=== PATIENT | male | born 1950 | race Caucasian/White ===

== ENCOUNTER 2024-08-19 02:59 | Emergency (ER) | payer OTHER, SELFPAY ==
[2024-08-19 03:05] VITALS: BP 170/89; PULSE 62; TEMP 36.4; O2SAT 96; BMI 30.7
--- NOTE | 2024-08-19 03:30 | XR_ITS ---
[facility] [place] [id number] Patient Name: LYDIA REIS MRN: [id number] date: 1950 Sex: M Assigned Patient Location: ER Current Patient Location: ED.MAIN Accession/Order Number: [id number] Exam Date: 08/19/2024 04:00 Report Date: 08/19/2024 05:45 At the request of: MELYSSA MARKER Procedure: XR chest 2V EXAM: XR chest 2V HISTORY: Cough for one week. COMPARISON: None. TECHNIQUE: PA and lateral views of the chest performed. FINDINGS: The trachea is midline. The heart size is normal. There is a mildly tortuous course of the descending thoracic aorta. The hilar shadows are unremarkable. There is no consolidation, pleural effusion or pulmonary vascular congestion. The bony structures appear osteopenic. There is resection of the distal right clavicle. There are paravertebral ossifications along the spine. XR/XR chest 2V IMPRESSION: There is no acute cardiopulmonary process. Electronically authenticated by: JOSE GOMEZ Date: 08/19/2024 05:45
--- NOTE | 2024-08-19 03:30 | ED_ITS ---
HPI - URI/Sore Throat General Chief Complaint: Upper Respiratory Infection Stated Complaint: COUGH Time Seen by Provider: 08/19/24 03:22 Source: patient and family Limitations: no limitations History of Present Illness HPI Narrative: This 73-year-old male, non-smoker, presents for evaluation of a cough for the past 4 to 5 days. The patient has been exposed to several people that have had viral illnesses in the recent past. He also works at [employer] He states there are a lot of people that he works with who have also been sick with coughs and colds. He has had a bronchospastic cough for the past 4 to 5 days and cannot sleep. Initially the cough was productive of anthony phlegm but is now clear or dry. He does not have any chest pain or specific shortness of breath. He has had pneumonia in the past but states he felt sick at that time and does not feel sick now. He has no abdominal pain or back pain. His has been giving him Sudafed for the cough without significant improvement and likely is related to the fact that he has not been able to sleep. Related Data Home Medications ?Medication ?Instructions ?Recorded ?Confirmed No Known Home Medications 08/19/24 08/19/24 Allergies Allergy/AdvReac Type Severity Reaction Status Date / Time No Known Drug Allergies Allergy Verified 08/19/24 03:07 Review of Systems ROS Status of ROS 10 or more systems reviewed and unremark able except as noted in history and below Exam Narrative Exam Narrative: Vital signs and Nursing Notes reviewed: Patient is afebrile with a normal pulse, blood pressure is elevated at 170/89, he is not hypoxic with pulse ox of 96% on room air General: Awake, alert, oriented, well-appearing adult male looking younger than his stated age, intermittent episodes of bronchospastic coughing HEENT: Normocephalic atraumatic, mucous membranes are moist and pink, eyes are clear, normal conjunctiva, vision is grossly intact, posterior pharynx is normal in appearance. Neck: Supple, no meningeal signs, no anterior or posterior cervical lymphadenopathy Chest: Faint expiratory wheezing and bronchospastic cough noted, the lungs are otherwise clear of rhonchi or rales, there is no accessory muscle use CVS: Regular rate and rhythm S1-S2, no murmurs rubs or gallops, pulses are brisk and equal bilaterally ABD: Soft, nondistended, nontender, no rebound guarding or rigidity, bowel sounds are normal, no pulsatile masses appreciated Extremities: Moving all extremities, no lower extremity tenderness or swelling noted, negative Homans' sign, pulses are brisk and equal bilaterally Skin: Normal in appearance without rash,pallor, petechiae or purpura Neuro: No focal deficits Constitutional Vital Signs, click to edit/add: Last Vital Signs Temp 97.6 F 08/19/24 03:05 Pulse 66 08/19/24 05:56 Resp 18 08/19/24 03:55 BP 146/79 H 08/19/24 05:56 Pulse Ox 95 08/19/24 05:56 O2 Del Method Room Air 08/19/24 04:01 Course Vital Signs Vital signs: Vital Signs Temperature 97.6 F 08/19/24 03:05 Pulse Rate 62 08/19/24 03:05 Respiratory Rate 18 08/19/24 03:05 Blood Pressure 170/89 H 08/19/24 03:05 Pulse Oximetry 96 08/19/24 03:05 Oxygen Delivery Method Room Air 08/19/24 03:05 Temperature 97.6 F 08/19/24 03:05 Pulse Rate 66 08/19/24 05:56 Respiratory Rate 18 08/19/24 03:55 Blood Pressure 146/79 H 08/19/24 05:56 Pulse Oximetry 95 08/19/24 05:56 Oxygen Delivery Method Room Air 08/19/24 04:01 MDM - URI/Sore Throat MDM Narrative Medical decision making narrative: This 73-year-old male, non-smoker, presents for evaluation of a cough for the past 4 to 5 days. He has been exposed to several people at work and family members who have recently had viral illnesses. He does not smoke. He has not had a fever. He states he does not feel sick just has a cough. He does have a bronchospastic cough with expiratory wheezing. He was given a respiratory treatment, cough medication with codeine, IV Solu-Medrol, IV fluids and routine labs are ordered. He has a normal white count and hemoglobin. Electrolytes are normal. Lactic acid is normal. Troponin and BNP are both normal. He will be discharged home with prescription for cough medication with codeine to help suppress his cough as well as albuterol MDI. He will also be given a note for work so that he can rest. Medical Records Medical records narrative: The [address] [address] XRay Report Signed Patient: LYDIA REIS MR#: [id number] : 1950 Acct:[id number] Age/Sex: 73 / M ADM Date: 08/19/24 Loc: ER Attending Dr: Ordering Physician: Chela Jauregui Date of Service: 08/19/24 Procedure(s): XR chest 2V Accession Number(s): [id number] cc: Miles Rajan D.O.; Chela Marker~ The [address] [address] Patient Name: LYDIA REIS MRN: [id number] date: 1950 Sex: M Assigned Patient Location: ER Current Patient Location: ED.MAIN Accession/Order Number: [id number] Exam Date: 08/19/2024 04:00 Report Date: 08/19/2024 05:45 At the request of: CHELA MARKER Procedure: XR chest 2V EXAM: XR chest 2V HISTORY: Cough for one week. COMPARISON: None. TECHNIQUE: PA and lateral views of the chest performed. FINDINGS: The trachea is midline. The heart size is normal. There is a mildly tortuous course of the descending thoracic aorta. The hilar shadows are unremarkable. There is no consolidation, pleural effusion or pulmonary vascular congestion. The bony structures appear osteopenic. There is resection of the distal right clavicle. There are paravertebral ossifications along the spine. XR/XR chest 2V IMPRESSION: There is no acute cardiopulmonary process. Electronically authenticated by: JOSE GOMEZ Date: 08/19/2024 05:45 Lab Data Attestation: I reviewed the patient's lab results. Labs: Lab Results 08/19/24 Range/Units 03:45 WBC 10.4 (4.0-11.0) 10^3/uL RBC 3.90 L (4.70-6.10) 10^6/uL Hgb 12.0 L (14.0-18.0) g/dL Hct 35.8 L (42.0-54.0) % MCV 91.8 (80.0-94.0) fL MCH 30.8 (25.9-34.0) pg MCHC 33.5 (29.9-35.2) g/dL RDW 13.2 (11.0-15.0) % Plt Count 403 (150-450) 10^3/uL MPV 8.5 L (9.5-13.5) fL Neut % (Auto) 56.5 (43.0-75.0) % Lymph % (Auto) 28.7 (20.5-60.0) % [place] % (Auto) 10.0 (1.7-12.0) % Eos % (Auto) 3.1 (0.9-7.0) % Baso % (Auto) 0.4 (0.2-2.0) % Neut # (Auto) 5.9 (1.4-6.5) 10^3/uL Lymph # (Auto) 3.0 (1.2-3.8) 10^3/uL [place] # (Auto) 1.0 H (0.3-0.8) 10^3/uL Eos # (Auto) 0.3 (0.0-0.7) 10^3/uL Baso # (Auto) 0.0 (0.0-0.1) 10^3/uL Abs Immat Gran (auto) 0.14 H (0.00-0.03) 10^3/uL Imm/Tot Granulo (auto) 1.3 H (0.0-0.5) % Sodium 137 (136-145) mmol/L Potassium 3.5 (3.5-5.1) mmol/L Chloride 100 (98-107) mmol/L Carbon Dioxide 31.3 (21.0-32.0) mmol/L Anion Gap 9.2 BUN 16.0 (7.0-18.0) mg/dL Creatinine 1.10 (0.70-1.30) mg/dL Est GFR ( Amer) >60 (>=60) Est GFR (Non-Af Amer) >60 (>=60) BUN/Creatinine Ratio 14.5 Glucose 104 (74-106) mg/dL Lactate 0.9 (0.4-2.0) mmol/L Calcium 9.3 (8.5-10.1) mg/dL Total Bilirubin 0.3 (0.2-1.0) mg/dL AST 49 H (15-37) U/L ALT 60 (16-63) U/L Alkaline Phosphatase 80 (46-116) U/L Troponin I High Sens 10.0 (4.0-76.1) pg/mL NT-Pro-B Natriuret Pep 308.0 (<=900.0) pg/mL Total Protein 7.7 (6.4-8.2) g/dL Albumin 3.1 L (3.4-5.0) g/dL Globulin 4.6 g/dL Albumin/Globulin Ratio 0.7 Discharge Plan Discharge Chief Complaint: Upper Respiratory Infection Clinical Impression: Viral upper respiratory tract infection with cough, Bronchospasm Patient Disposition: Home, Self-Care Time of Disposition Decision: 04:49 Condition: Good Prescriptions / Home Meds: No Action No Known Home Medications Print Language: Ukrainian Instructions: Upper Respiratory Infection (ED), Bronchospasm (ED), Wheezing (ED) Referrals: Miles Rajan DO [Primary Care Provider] - 1 week
[2024-08-19] MEDS: METHYLPREDNISOLONE SOD SUCC PF 125 MG/2 ML VIAL IVP (03:50)
[2024-08-19] MEDS: CODEINE 10 MG/GUAIFENESIN 100 MG 5 ML CUP 10 ML PO (03:50)
[2024-08-19] MEDS: IPRATROPIUM/ALBUTEROL SULFATE 3 ML AMPUL.NEB IH (03:53)
[2024-08-19 03:55] VITALS: PULSE 70; O2SAT 93
[2024-08-19 04:00] LABS: Basophils Percent Auto 0.4 % (0.2-2.0); Eosinophils Absolute Auto 0.3 10^3/uL (0.0-0.7); Eosinophils Percent Auto 3.1 % (0.9-7.0); Hematocrit 35.8 % (42.0-54.0); Immature Granulocytes Abs Auto 0.14 10^3/uL (0.00-0.03); Immature Granulocytes Pct Auto 1.3 % (0.0-0.5); Lymphocytes Percent Auto 28.7 % (20.5-60.0); Mean Corpuscular HGB Conc 33.5 g/dL (29.9-35.2); Mean Corpuscular Hemoglobin 30.8 pg (25.9-34.0); Mean Corpuscular Volume 91.8 fL (80.0-94.0); Mean Platelet Volume 8.5 fL (9.5-13.5); Neutrophils Absolute Auto 5.9 10^3/uL (1.4-6.5); Neutrophils Percent Auto 56.5 % (43.0-75.0); Platelet Count 403 10^3/uL (150-450); Red Cell Distribution Width 13.2 % (11.0-15.0); White Blood Count 10.4 10^3/uL (4.0-11.0)
[2024-08-19 04:01] VITALS: O2SAT 96
[2024-08-19 04:17] LABS: Alanine Aminotransferase 60 U/L (16-63); Albumin Globulin Ratio 0.7; Albumin Level 3.1 g/dL (3.4-5.0); Alkaline Phosphatase 80 U/L (46-116); Anion Gap 9.2; Aspartate Amino Transferase 49 U/L (15-37); BUN Creatinine Ratio 14.5; Bilirubin Total 0.3 mg/dL (0.2-1.0); Calcium 9.3 mg/dL (8.5-10.1); Carbon Dioxide 31.3 mmol/L (21.0-32.0); Chloride 100 mmol/L (98-107); Estimated GFR (African America >60 (>=60); Estimated GFR (Non-African Ame >60 (>=60); Globulin 4.6 g/dL; Glucose 104 mg/dL (74-106); Potassium 3.5 mmol/L (3.5-5.1); Sodium 137 mmol/L (136-145); Total Protein 7.7 g/dL (6.4-8.2)
[2024-08-19 04:19] LABS: Lactate/Lactic Acid 0.9 mmol/L (0.4-2.0)
[2024-08-19] MEDS: 0.9 % SODIUM CHLORIDE 500 ML IV (05:00)
[2024-08-19 05:56] VITALS: BP 146/79; PULSE 66; O2SAT 95
== END 2024-08-19 05:58 | disposition home or self-care (01) ==
PROVIDERS: Emergency Provider Emergency Medicine; PCP Internal Medicine
DX: J06.9 Acute upper respiratory infection, unspecified (principal); R05.9 Cough, unspecified; J98.01 Acute bronchospasm
CPT/HCPCS: 36415; 71046; 80053; 83605; 83880; 84484; 85025; 94640; 96374; 99284; J2919

== ENCOUNTER 2024-09-08 11:39 | Outpatient (OUT) | payer OTHER, SELFPAY ==
[2024-09-08 11:57] LABS: Basophils Absolute Auto 0.1 10^3/uL (0.0-0.1); Basophils Percent Auto 0.8 % (0.2-2.0); Eosinophils Absolute Auto 0.3 10^3/uL (0.0-0.7); Eosinophils Percent Auto 3.5 % (0.9-7.0); Hematocrit 39.3 % (42.0-54.0); Hemoglobin 12.5 g/dL (14.0-18.0); Immature Granulocytes Abs Auto 0.01 10^3/uL (0.00-0.03); Immature Granulocytes Pct Auto 0.1 % (0.0-0.5); Lymphocytes Absolute Auto 2.8 10^3/uL (1.2-3.8); Lymphocytes Percent Auto 36.8 % (20.5-60.0); Mean Corpuscular HGB Conc 31.8 g/dL (29.9-35.2); Mean Corpuscular Hemoglobin 29.4 pg (25.9-34.0); Mean Corpuscular Volume 92.5 fL (80.0-94.0); Mean Platelet Volume 7.9 fL (9.5-13.5); Monocytes Absolute Auto 0.5 10^3/uL (0.3-0.8); Monocytes Percent Auto 7.2 % (1.7-12.0); Neutrophils Absolute Auto 3.9 10^3/uL (1.4-6.5); Neutrophils Percent Auto 51.6 % (43.0-75.0); Platelet Count 461 10^3/uL (150-450); Red Blood Count 4.25 10^6/uL (4.70-6.10); Red Cell Distribution Width 13.4 % (11.0-15.0); White Blood Count 7.5 10^3/uL (4.0-11.0)
[2024-09-08 12:48] LABS: Percent Iron Saturation 17.2 %
[2024-09-08 17:15] LABS: Prostate Specific Antigen Scrn 4.07 ng/mL (<=4.00)
[2024-09-09 04:08] LABS: Vitamin B12 400 pg/mL (232-1245)
== END 2024-09-08 11:40 | disposition home or self-care (01) ==
LOC: LAB 11:41
PROVIDERS: PCP Internal Medicine; Visit Provider Internal Medicine
DX: D64.9 Anemia, unspecified (principal); Z12.5 Encounter for screening for malignant neoplasm of prostate
CPT/HCPCS: 36415; 82607; 82728; 82746; 83540; 83550; 85025; G0103

== ENCOUNTER 2025-03-02 09:32 | Emergency (ER) | payer OTHER, SELFPAY ==
[2025-03-02 09:39] VITALS: BP 178/93; PULSE 76; TEMP 36.9; O2SAT 96; BMI 29.8
--- NOTE | 2025-03-02 09:51 | ED.GENADUL1 ---
HPI HPI - General Adult General Chief complaint: Back Pain/Injury Stated complaint: BCK PAIN Time Seen by Provider: 03/02/25 09:43 Source: patient Mode of arrival: walk-in History of Present Illness HPI narrative: 74-year-old male presents for left lower back pain. His believes he has sciatica. He has had pain and numbness going down the anterior surface of the left leg. 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 This began a few days ago but was not precipitated by any specific injury. He has never had issues with sciatica before. The pain is moderate and only on the left side. No dysuria or hematuria Related Data Previous Rx's ?Medication ?Instructions ?Recorded hydrocodone 5 mg-acetaminophen 325 1 tab PO Q6H PRN pain 5 days #20 03/02/25 mg tablet tabs prednisone 10 mg tablet See Rx Instructions .Route 03/02/25 .COMPLEX #30 tabs Allergies Allergy/AdvReac Type Severity Reaction Status Date / Time No Known Drug Allergies Allergy Verified 03/02/25 09:39 Opioid HPI Opioid Management Most Recent Opioid Data: No Data to Display Review of Systems ROS Narrative A ten point review of systems is negative except as noted above. PFSH PFSH Social History Little interest or pleasure in doing things: not at all Feeling down, depressed, or hopeless: not at all Exam Narrative Exam Narrative: Nurses note and vital signs reviewed and patient is not hypoxic. General: The patient appears well and in no apparent distress. Patient is resting comfortably on cart. Skin: Warm, dry, no pallor noted. There is no rash noted. Head: Normocephalic, atraumatic Eye: Normal conjunctiva, no drainage Ears, Nose, Mouth, and Throat: oral mucosa is moist. Nares patent. Cardiovascular: Regular Rate and Rhythm Respiratory: Patient is in no distress, no accessory muscle use, lungs are clear to auscultation, no wheezing, rales or rhonchi Back: No bruise or rash or palpable tenderness GI: Soft and nontender Musculoskeletal: The leg is not swollen. No calf tenderness Neurological: A&O, normal speech Psychiatric: Cooperative Constitutional Vital Signs, click to edit/add: Last Vital Signs Temp 98.4 F 03/02/25 09:39 Pulse 76 03/02/25 09:39 Resp 20 03/02/25 09:39 BP 178/93 H 03/02/25 09:39 Pulse Ox 96 03/02/25 09:39 O2 Del Method Room Air 03/02/25 09:39 Course Vital Signs Vital signs: Vital Signs Temperature 98.4 F 03/02/25 09:39 Pulse Rate 76 03/02/25 09:39 Respiratory Rate 20 03/02/25 09:39 Blood Pressure 178/93 H 03/02/25 09:39 Pulse Oximetry 96 03/02/25 09:39 Oxygen Delivery Method Room Air 03/02/25 09:39 Temperature 98.4 F 03/02/25 09:39 Pulse Rate 76 03/02/25 09:39 Respiratory Rate 20 03/02/25 09:39 Blood Pressure 178/93 H 03/02/25 09:39 Pulse Oximetry 96 03/02/25 09:39 Oxygen Delivery Method Room Air 03/02/25 09:39 Medical Decision Making MDM Narrative Medical decision making narrative: Lumbar x-rays show no acute findings. My clinical impression is that he has sciatica. He will be prescribed prednisone and [place] and follow-up with his doctor. Treatment diagnosis and follow-up were discussed with the patient and his . Differential Diagnosis Differential Diagnosis: Sciatica, disc herniation, compression fracture Imaging Data Lumbar x-ray: Radiologist's impression: No acute process. Severe disc space degenerative changes Discharge Plan Discharge Chief Complaint: Back Pain/Injury Clinical Impression: Sciatica Patient Disposition: Home, Self-Care Time of Disposition Decision: 11:37 Condition: Good Mode of Transportation: Private Vehicle Prescriptions / Home Meds: New hydrocodone-acetaminophen 5-325 mg tablet 1 tab PO Q6H PRN (Reason: pain) 5 Days Qty: 20 0RF prednisone 10 mg tablet See Rx Instructions .ROUTE .COMPLEX Qty: 30 0RF Rx Instructions: 4 by mouth daily for three days then 3 by mouth daily for three days then 2 by mouth daily for three days then 1 by mouth daily for three days Print Language: Mohawk Instructions: Sciatica (ED) Referrals: Miles Rajan DO [Primary Care Provider] - 1 week
[2025-03-02] MEDS: KETOROLAC TROMETHAMINE 60 MG/2 ML VIAL IM (10:04)
--- OUTSIDE RECORDS SUMMARY | 2025-03-02 10:59 | XMS_ITS | CCD ---
Author Organization [facility] Care Team Providers Care Bracer Name Role Phone Miles Rajan Unavailable JEREMIE BYRNE Attending Unavailable JEREMIE BYRNE Referring Unavailable Miles Rajan MD Primary Care Provider Medications Current Medications Medication Drug Class(es) Dates Sig (Normalized) Sig (Original) acetaminophen 325 mg oral tablet (3 sources) acetaminophen (Tylenol) 325 MG tablet every 4 (four) hours. Active doxycycline hyclate 100 mg oral capsule (2 sources) Tetracycline-class Drug Start: 05-07-2023 take 1 capsule by mouth twice daily Doxycycline Hyclate 100 MG 1 capsule Orally twice daily for 7 days May, Active ibuprofen 200 mg oral tablet (3 sources) Nonsteroidal Anti-inflammatory Drug ibuprofen (Advil) 200 MG tablet every 8 (eight) hours. Active Problems Problem Classification Problem Date Documented Date Episodic/Chronic Acute bronchitis (1 source) Acute bronchitis due to other specified organisms Episodic Coagulation and hemorrhagic disorders (1 source) Easy bruising; Translations: [Spontaneous ecchymoses] 04-20-2024 Episodic Deficiency and other anemia (1 source) Anemia; Translations: [Anemia, unspecified] 07-31-2024 Episodic Deficiency and other anemia (1 source) Anemia, unspecified; Translations: [Anemia, unspecified] 07-31-2024 Episodic Hyperplasia of prostate (4 sources) Benign prostatic hypertrophy without outflow obstruction; Translations: [Benign prostatic hyperplasia without lower urinary tract symptoms] 07-30-2024 Chronic Osteoarthritis (5 sources) Osteoarthritis of right hip joint; Translations: [Unilateral primary osteoarthritis, right hip] Onset: 10-07-2023 10-07-2023 Chronic Other circulatory disease (3 sources) Elevated blood-pressure reading without diagnosis of hypertension; Translations: [Elevated blood-pressure reading, without diagnosis of hypertension] 04-20-2024 Episodic Other circulatory disease (1 source) Elevated blood-pressure reading, without diagnosis of hypertension; Translations: [Elevated blood pressure reading without diagnosis of hypertension] 07-31-2024 Episodic Other connective tissue disease (5 sources) History of total hip arthroplasty; Translations: [Presence of right artificial hip joint] Onset: 10-07-2023 10-07-2023 Chronic Other nutritional; endocrine; and metabolic disorders (1 source) Overweight; Translations: [Overweight] 04-20-2024 Episodic Other screening for suspected conditions (not mental disorders or infectious disease) (3 sources) Patient encounter status; Translations: [Encounter for screening for malignant neoplasm of prostate] 07-30-2024 Episodic Results Test Name Value Interpretation Reference Range Facil ity XR Hip - right 3 [facility] Result: October 13, 2024 x-rays AP and lateral of the right hip demonstrate a right total hip replacement in good position alignment without signs of loosening fracture or failure. Impression: Stable appearance of right total hip replacement Donovan Byrne D.O. [facility] Radiology Study observation (narrative) [facility] Vital Signs Date Time Vital Sign Value Performing Clinician Faci lity 07-31-2024 09:03-0400 Body height 182.88 cm [facility] 07-31-2024 09:03-0400 Body mass index (BMI) [Ratio] 29.9 kg/m2 [facility] 07-31-2024 09:03-0400 Body weight 100.35 kg [facility] 07-31-2024 09:03-0400 Diastolic blood pressure 90 mm[Hg] [facility] 07-31-2024 09:03-0400 Heart rate 69 /min [facility] 07-31-2024 09:03-0400 Respiratory rate 12 /min [facility] 07-31-2024 09:03-0400 Systolic blood pressure 156 mm[Hg] [facility] 04-20-2024 14:22-0400 Body height 182.88 cm [facility] 04-20-2024 14:22-0400 Body mass index (BMI) [Ratio] 29.7 kg/m2 [facility] 04-20-2024 14:22-0400 Body weight 99.33 kg [facility] 04-20-2024 14:22-0400 Diastolic blood pressure 85 mm[Hg] [facility] 04-20-2024 14:22-0400 Heart rate 81 /min [facility] 04-20-2024 14:22-0400 Respiratory rate 12 /min [facility] 04-20-2024 14:22-0400 Systolic blood pressure 142 mm[Hg] [facility] Encounters Encounter Date Encounter Type Care Provider Facility Start: 10-13-2024 End: 10-13-2024 Bamboo flowsheet Jeremie Byrne DO Work Phone: [facility] Start: 10-13-2024 End: 10-13-2024 Bamboo flowsheet Jeremie Byrne DO Work Phone: [facility] Start: 10-13-2024 End: 10-13-2024 Office outpatient visit 10 minutes Jeremie Byrne DO Work Phone: [facility] Comment on above: Primary osteoarthrit is of right hip; Status post total replacement of right hip Start: 10-13-2024 End: 10-13-2024 ambulatory JEREMIE BYRNE Not Available Start: 07-31-2024 End: 07-31-2024 ambulatory [facility] Work Phone: Start: 07-31-2024 End: 07-31-2024 Patient encounter procedure [facility] Physician [facility] Work Phone: Start: 04-20-2024 End: 04-20-2024 ambulatory [facility] Work Phone: Start: 04-20-2024 End: 04-20-2024 Patient encounter procedure [facility] Physician [facility] Work Phone: Start: 05-07-2023 End: 05-07-2023 ambulatory Miles Rajan Other [facility] Other Start: 05-07-2023 Office outpatient vi sit 15 minutes Miles Rajan [facility] Start: 05-07-2023 Telephone encounter Miles Rajan [facility] Procedures Date Procedure Procedure Detail Performing Clinician Start: 10-13-2024 Radex hip unilateral with pelvis 2-3 views Jeremie Byrne DO Work Phone: Plan of Treatment Date Care Activity Detail Author Dayanna Kurtz [facility] Payers Date Payer Category Payer Medicare (Managed Care) [facility] MEDICARE [id number] 2022 Medicare [id number] 1950 Unknown [id number] 1950 Unknown [id number] Medicare Medicare [id number] Unknown [employer] [id number] Social History Date Type Detail Facility Sex Assigned At [facility] Other Start: 1950 Sex Assigned At Male [facility] Tobacco smoking status MOIS Tobacco smoking consumption unknown [facility] Start: 1950 Sex assigned at Not on file [facility] History of Present illness Narrative 10-13-2024 Jeremie Byrne DO - 10/13/2024 10:45 AM EST Note Date & Type Note Facility 10-13-2024 History of Presen t illness Narrative Images from the original note were not included. HISTORY OF PRESENT ILLNESS: Lydia Reis is an 73 y.o. @ male. Follow up RT KINGS RT hip: 5 years s/p RT KINGS dos (08/05/19). Doing well, not taking anything for pain. He notes sometimes uncomfortable to lay on RT side. Incision well healed. Ambulating well unassisted. Pt pleased with outcome. He is working at [employer]. MEDICATION: Current Outpatient Medications on File Prior to Visit Medication Sig Dispense Refill acetaminophen (Tylenol) 325 MG tablet every 4 (four) hours. ibuprofen (Advil) 200 MG tablet every 8 (eight) hours. No current facility-administered medications on file prior to visit. MEDICAL HISTORY: Past Medical History: Diagnosis Date Arthritis ALLERGIES: No Known Allergies VITALS: There were no vitals taken for this visit. PHYSICAL EXAM: Ortho Exam RIGHT HIP ROM 20 IR and 30 ER Painless ROM Strength 5/5 Gait intact IMAGING: XR hip right 2 or 3 views Imaging Result: October 13, 2024 x-rays AP and lateral of the right hip demonstrate a right total hip replacement in good position alignment without signs of loosening fracture or failure. Impression: Stable appearance of right total hip replacement Donovan Byrne D.O. ASSESSMENT: ICD-10-CM 1. Primary osteoarthritis of right hip M16.11 XR hip right 2 or 3 views 2. Status post total replacement of right hip Z96.641 PLAN: Follow up as needed, any issues/concerns follow up sooner. Dr. Byrne obtained history and examined the patient, I am acting as scribe for Dr. Byrne/jaylen I did advise the patient that I am leaving my current practice to practice in another state but my colleagues are willing to see him if he has any problems or concerns or if he desires a referral to another review specialist we would be happy to make referral, he states he would like to continue his care here if he needed. William Byrne D.O. documented in this encounter [facility] Evaluation note 05-07-2023 Note Date & Type Note Facility 05-07-2023 Evaluation note Encounter Date Diagnosis Assessment Notes May, Acute bronchitis due to other specified organisms (ICD-10 - J20.8) Instructed to use Robitussin or Mucinex for cough, saline or Flonase NS for congestion, Tylenol for pain and fever. [facility] Other Evaluation note Note Date & Type Note Facility Evaluation note No Information [facility] Other Evaluation note Note Date & Type Note Facility Evaluation note No assessment information availa ble [facility] Work Phone: Evaluation note Note Date & Type Note Facility Evaluation note Diagnosis Onset Date Anemia acute Benign prostatic hyperplasia with lower urinary tract symptoms acute Elevated BP without diagnosi s of hypertension acute Screening PSA (prostate specific antigen) acute Medicare annual wellness visit, subsequent noneactive [facility] Work Phone: Evaluation note Note Date & Type Note Facility Evaluation note Diagnosis Primary osteoarthritis of right hip Status post total replacement of right hip documented in this encounter [facility] History general Narrative - Reported Note Date & Type Note Facility History general Narrative - Reported Type Medical History BPH without obstruct ion/lower urinary tract symptoms Medical History Elevated blood press ure (not hypertension) Surgical History RIGHT SHOULDER ARTHROSCOPY Surgical History RIGHT TOTAL HIP ARTHROPLASTY 20 19 Surgical History ARTHROSCOPY, KNEE LEFT Hospitalization History SEE SURGICAL HX [facility] Other Chief Complaint and Reason for Visit Chief Complaint BRUSING EASILY Chief Complaint wellness Reason for Visit Anemia Benign prostatic hyperplasia with lower urinary tract symptoms Elevated BP without diagnosis of hypertension Screening PSA (prostate specific antigen) Medicare annual wellness visit, subsequent Advance Directives Advance Directive Response Recorded Date/ Time Advance Directives No April 20 2:05pm Summary Purpose Family History No Family History Records Found Additional Source Comments REASON FOR VISIT (unrecogniz ed section and content) Reason Comments Follow-up sinus infection? bad loose cough Care Teams (unrecognized sec tion and content) Team Status: Active Member Role Status Dates Miles Rajan DO Primary Care Provider Active Team Status: Inactive Member Role Status Dates Miles Rajan DO Primary Care Provide r, Attending Provider Active Start: April 20, 2024 End: April 20, 2024 Team Status: Inactive Member Role Status Dates Miles Rajan DO Primary Care Provide r, Attending Provider Active Start: July 31, 2024 End: July 31, 2024 Bracer Relationship Specialty Start Date End Date Miles Rajan MD [address] [place] [id number] PCP - General Internal Medicine 10/08/23 Bracer Relationship Specialty Start Date End Date Miles Rajan MD [address] [place] [id number] PCP - General Internal Medicine 10/08/23 Goals (unrecognized section and content) Goals may be documented in a n alternate section (unrecognized sect ion and content) No Status Records Found INFORMATION SOURCE (unrecogn ized section and content) DATE CREATED AUTHOR 10/19/2024 [facility] EPIC FOR RECORDS PERTAINING TO PATIENTS WHO ARE OR HAVE BEEN ENROLLED IN A CHEMICAL DEPENDENCY/SUBSTANCEABUSE PROGRAM, SOME INFORMATION MAY BE OMITTED. This clinical summary was aggregated from multiple sources. Caution should be exercised in using it in the provision of clinical care. This summary normalizes information from multiple sources, and as a consequence, information in this document may materially change the coding, format and clinical context of patient data. In addition, data may be omitted in some cases. CLINICAL DECISIONS SHOULD BE BASED ON THE PRIMARY CLINICAL RECORDS. [facility] provides no warranty or guarantee of the accuracy or completeness of information in this document.
== END 2025-03-02 12:03 | disposition home or self-care (01) ==
PROVIDERS: Emergency Provider Emergency Medicine; PCP Internal Medicine
DX: M54.32 Sciatica, left side (principal)
CPT/HCPCS: 72100; 96372; 99284; J1885

== ENCOUNTER 2025-09-09 09:43 | Outpatient (OUT) | payer OTHER, SELFPAY ==
--- OUTSIDE RECORDS SUMMARY | 2025-09-09 09:53 | XMS_ITS | CCD ---
Author Organization [facility] Care Team Providers Care Straightening Roll Operator Name Role Phone Miles Rajan Unavailable JEREMIE BYRNE Attending Unavailable JEREMIE BYRNE Referring Unavailable Miles Rajan MD Primary Care Provider Miles Rajan DO Primary Care Provider Miles Rajan DO Attending Provider Medications Current Medications Medication Drug Class(es) [...] MG tablet every 8 (eight) hours. Active [place] (No Known Home Meds) (1 source) Start: 08-23-2025 [place] (No Known Home Meds) Active August 23, 2025 12:00am Completed/Discontinued Medications Medication Drug Class(es) Dates Sig (Normalized) Sig (Original) benzonatate 200 mg oral capsule (2 sources) Non-narcotic Antitussive Start: 08-25-2024 End: 08-23-2025 take 1 capsule by mouth three times daily Benzonatate 200 mg capsule Discontinued 200 MG PO Three times daily 30 09August 25, 2024 12:00am August 23, 2025 10:37am etodolac 500 mg oral tablet (2 sources) Nonsteroidal Anti-inflammatory Drug Start: 03-05-2025 End: 08-23-2025 take 1 tablet by mouth twice daily Etodolac 500 mg tablet Discontinued 500 MG PO Twice daily March 05, 2025 12:00am August 23, 2025 10:37am Problems Problem Classification Problem Date Documented Date Episodic/Chronic Acute bronchitis (1 source) Acute bronchitis due to other specified organisms Episodic Coagulation and hemorrhagic disorders (3 sources) Easy bruising; Translations: [Spontaneous ecchymoses] 04-20-2024 Episodic Deficiency and other anemia (4 sources) Anemia; Translations: [Anemia, unspecified] 07-31-2024 Episodic Comment on above: FA, B12 normal, Fe b orderline - ologuard negative 10/2024 Deficiency and other anemia (1 source) Anemia, unspecified; Translations: [Anemia, unspecified] 07-31-2024 Episodic Hyperplasia of prostate (6 sources) Benign prostatic hypertrophy without outflow obstruction; Translations: [Benign prostatic hyperplasia without lower urinary tract symptoms] 07-30-2024 Chronic Osteoarthritis (5 sources) Osteoarthritis of right hip joint; Translations: [Unilateral primary osteoarthritis, right hip] Onset: 10-07-2023 10-07-2023 Chronic Other circulatory disease (6 sources) Elevated blood-pressure reading without diagnosis of hypertension; Translations: [Elevated blood-pressure reading, without diagnosis of hypertension] 04-20-2024 Episodic Other circulatory disease (2 sources) Elevated blood-pressure reading, without diagnosis of hypertension; Translations: [Elevated blood pressure reading without diagnosis of hypertension] 07-31-2024 Episodic Other connective tissue disease (5 sources) History of total hip arthroplasty; Translations: [Presence of right artificial hip joint] Onset: 10-07-2023 10-07-2023 Chronic Other nutritional; endocrine; and metabolic disorders (2 sources) Obesity; Translations: [Obesity, unspecified] 03-05-2025 Chronic Other nutritional; endocrine; and metabolic disorders (3 sources) Overweight; Translations: [Overweight] 04-20-2024 Episodic Other screening for suspected conditions (not mental disorders or infectious disease) (8 sources) Patient encounter status; Translations: [Encounter for screening for malignant neoplasm of prostate] 07-30-2024 Episodic Comment on above: PSA: 4.07 - 09/2024, 3.12 - 10/2024 Spondylosis; intervertebral disc disorders; other back problems (4 sources) Lumbar spondylosis; Translations: [Spondylosis without myelopathy or radiculopathy, lumbar region] 03-04-2025 Chronic Spondylosis; intervertebral disc disorders; other back problems (3 sources) Low back pain; Translations: [Low back pain radiating to left lower extremity] 03-04-2025 Episodic Results Test Name Value Interpretation Reference Range Facil ity XR Hip - right 3 [facility] Result: October 13, 2024 x-rays AP and lateral of the right hip demonstrate a right total hip replacement in good position alignment without signs of loosening fracture or failure. Impression: Stable appearance of right total hip replacement Donovan Byrne D.O. [facility] Rad[facility] Study observation (narrative) [facility] Vital Signs Date Time Vital Sign Value Performing Clinician Russel benavides 08-23-2025 10:39-0400 Body height 182.88 cm Miles Ball DO Work Phone: [facility] 08-23-2025 10:39-0400 Body mass index (BMI) [Ratio] 28.8 kg/m2 Miles Ball DO Work Phone: [facility] 08-23-2025 10:39-0400 Body weight 96.33 kg Miles Ball DO Work Phone: [facility] 08-23-2025 10:39-0400 Diastolic blood pressure 95 mm[Hg] Miles Ball DO Work Phone: [facility] 08-23-2025 10:39-0400 Heart rate 71 /min Miles Ball DO Work Phone: [facility] 08-23-2025 10:39-0400 Respiratory rate 12 /min Miles Ball DO Work Phone: [facility] 08-23-2025 10:39-0400 Systolic blood pressure 211 mm[Hg] Miles Ball DO Work Phone: [facility] 03-05-2025 10:40-0400 Body height 182.88 cm [facility] 03-05-2025 10:40-0400 Body mass index (BMI) [Ratio] 30.7 kg/m2 [facility] 03-05-2025 10:40-0400 Body weight 102.56 kg [facility] 03-05-2025 10:40-0400 Diastolic blood pressure 81 mm[Hg] [facility] 03-05-2025 10:40-0400 Heart rate 61 /min [facility] 03-05-2025 10:40-0400 Respiratory rate 12 /min [facility] 03-05-2025 10:40-0400 Systolic blood pressure 165 mm[Hg] [facility] 07-31-2024 09:03-0400 Body height 182.88 cm [facility] 07-31-2024 09:03-0400 Body mass index (BMI) [Ratio] 29.9 kg/m2 [facility] 07-31-2024 09:03-0400 Body weight 100.35 kg [facility] 07-31-2024 09:03-0400 Diastolic blood pressure 90 mm[Hg] [facility] 07-31-2024 09:03-0400 Heart rate 69 /min [facility] 07-31-2024 09:03-0400 Respiratory rate 12 /min [facility] 07-31-2024 09:03-0400 Systolic blood pressure 156 mm[Hg] [facility] 04-20-2024 14:22-0400 Body height 182.88 cm [facility] 04-20-2024 14:22-0400 Body mass index (BMI) [Ratio] 29.7 kg/m2 [facility] 04-20-2024 14:22-0400 Body weight 99.33 kg [facility] 04-20-2024 14:22-0400 Diastolic blood pressure 85 mm[Hg] [facility] 04-20-2024 14:22-0400 Heart rate 81 /min [facility] 04-20-2024 14:22-0400 Respiratory rate 12 /min [facility] 04-20-2024 14:22-0400 Systolic blood pressure 142 mm[Hg] [facility] Encounters Encounter Date Encounter Type Care Provider Facility Start: 08-23-2025 End: 08-23-2025 ambulatory Miles Ball DO Work Phone: [facility] Work Phone: Start: 08-23-2025 End: 08-23-2025 Patient encounter procedure Miles Rajan DO -[facility] Work Phone: Start: 03-05-2025 End: 03-05-2025 ambulatory [facility] Work Phone: Start: 03-05-2025 End: 03-05-2025 Patient encounter procedure [facility] Work Phone: Start: 03-03-2025 Non-patient / Non-visit [facility] Work Phone: Start: 10-13-2024 End: 10-13-2024 Bamboo flowsheet Jeremie [...] Not Available Start: 07-31-2024 End: 07-31-2024 ambulatory [facility] Work Phone: Start: 07-31-2024 End: 07-31-2024 Patient encounter procedure [facility] Work Phone: Start: 04-20-2024 End: 04-20-2024 ambulatory [facility] Work Phone: Start: 04-20-2024 End: 04-20-2024 Patient encounter procedure [facility] Work Phone: Start: 05-07-2023 End: 05-07-2023 ambulatory Miles Rajan Other [employer] Other Start: 05-07-2023 Office outpatient vi sit 15 minutes Miles Rajan [facility] Start: 05-07-2023 Telephone encounter Miles Rajan [facility] Procedures Date Procedure Procedure Detail Performing Clinician Start: 10-13-2024 Radex hip unilateral with pelvis 2-3 views Jeremie Byrne DO Work Phone: Plan of Treatment Date Care Activity Detail Author Patient Education Low back pain in adults [facility] Work Phone: [facility] Immunizations Immunization Date Immunization Notes Care Provider Fa nathaniel 10-31-2021 COVID-19 mRNA-1273 (Moderna) Miles Rajan DO Work Phone: [facility] 03-24-2021 COVID-19 mRNA-1273 (Moderna) Miles Rajan DO Work Phone: [facility] 02-24-2021 COVID-19 mRNA-1273 (Moderna) Miles Rajan DO Work Phone: [facility] Payers Date Payer Category Payer Medicare (Managed Care) [facility] MEDICARE [id number] 2022 Medicare [id number] 1950 Unknown [id number] 1950 Unknown [id number] Medicare Medicare [id number] Unknown [employer] [id number] Social History Date Type Detail Facility Sex Assigned At [facility] Other Start: 1950 Sex Assigned At Male F [facility] Tobacco smoking status [facility] Tobacco smoking consumption unknown [facility] Start: 1950 Sex assigned at Not on file [facility] Start: 03-05-2025 Sex Male (finding) [facility] Start: 08-23-2025 Tobacco smoking status [facility] Never smoked tobacco (finding) [facility] History of Present illness Narrative 10-13-2024 Jeremie Byrne, DO - 10/13/2024 10:45 AM EST Note Date & Type Note Facility 10-13-2024 History of Presen t illness Narrative Images from the original note were not included. HISTORY OF PRESENT ILLNESS: Khadar James is an 73 y.o. @ male. 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 William Byrne D.O. documented in this encounter [facility] Healthcare Evaluation note 05-07-2023 Note Date & Type Note Facility 05-07-2023 Evaluation note Encounter Date Diagnosis Assessment Notes May, Acute bronchitis due to other specified organisms (ICD-10 - J20.8) Instructed to use Robitussin or Mucinex for cough, saline or Flonase NS for congestion, Tylenol for pain and fever. [employer] Other Evaluation note Note Date & Type Note Facility Evaluation note No Information [facility] [employer] Other Evaluation note Note Date & Type Note Facility Evaluation note No assessment information availa ble [facility] Work Phone: Evaluation note Note Date & Type Note Facility Evaluation note Diagnosis Onset Date Anemia acute Benign prostatic hyperplasia with lower urinary tract symptoms acute Elevated BP without diagnosi s of hypertension acute Screening PSA (prostate specific antigen) acute Medicare annual wellness visit, subsequent noneactive [facility] Work Phone: Evaluation note Note Date & Type Note Facility Evaluation note Diagnosis Primary osteoarthritis of right hip Status post total replacement of right hip documented in this encounter [facility] Healthcare Evaluation note Note Date & Type Note Facility Evaluation note Diagnosis Onset Date Resolution Elevated BP without diagnosis of hypertension acute March 05, 2025 10:09am Low back pain radiating to left lower extremity acute March, 2024 10:09am Lumbar spondylosis acute March 05, 2025 10:09am [facility] Work Phone: Evaluation note Note Date & Type Note Facility Evaluation note Diagnosis Onset Date Resolution Anemia acute August 10:20am Elevated BP without diagnosis of hypertension acute August 23, 2025 10:20am Lumbar spondylosis acute Septem 2024 10:20am Obesity acute August 10:20am Screening PSA (prostate specific antigen) acute August 10:20am Medicare annual wellness visit, subsequent noneactive August 23, 2025 10:20am [facility] Work Phone: History general Narrative - Reported Note Date & Type Note Facility History general Narrative - Reported Type Medical History BPH without obstruct ion/lower urinary tract symptoms Medical History Elevated blood press ure (not hypertension) Surgical History RIGHT SHOULDER ARTHROSCOPY Surgical History RIGHT TOTAL HIP ARTHROPLASTY 20 19 Surgical History ARTHROSCOPY, KNEE LEFT Hospitalization History SEE SURGICAL HX [employer] Other Reason for referral (narrative) Note Date & Type Note Facility Reason for referral (narrative) No reason for referral information available [facility] Work Phone: Chief Complaint and Reason for Visit Chief Complaint BRUSING EASILY Chief Complaint wellness Reason for Visit Anemia Benign prostatic hyperplasia with lower urinary tract symptoms Elevated BP without diagnosis of hypertension Screening PSA (prostate specific antigen) Medicare annual wellness visit, subsequent Chief Complaint Admit Date Amb Documentation March 03, 2025 11:2 2am ER follow up, sciatica pain March 05, 025 10:09am Reason for Visit Admit Date Elevated BP without diagnosis of hyperte nsion March 05, 2025 10:09am Low back pain radiating to left lower ex tremity March 05, 2025 10:09am Lumbar spondylosis March 05, 2025 10:0 9am Chief Complaint Admit Date Wellness August 23, 2025 10:20am Reason for Visit Admit Date Anemia August 23, 2025 10:20am Elevated BP without diagnosis of hyperte nsion August 23, 2025 10:20am Lumbar spondylosis August 23, 2025 10:20am Obesity August 23, 2025 10:20am Screening PSA (prostate specific antigen ) August 23, 2025 10:20am Medicare annual wellness visit, subseque nt August 23, 2025 10:20am Advance Directives Advance Directive Response Recorded Date/ Time Advance Directives No April 20 2:05pm Advance Directive Response Recorded Date/ Time Advance Directives No August 9:31am Summary Purpose Family History No Family History Records Found Additional Source Comments REASON FOR VISIT (unrecogniz ed section and content) Reason Comments Follow-up sinus infection? bad loose cough Care Teams (unrecognized sec tion and content) Team Status: Active Member Role Status Dates Miles Rajan DO Primary Care Provider Active Team Status: Inactive Member Role Status Dates Miles Rajan DO Primary Care Provider Active Start: August 23, 2025 End: August 23, 2025 Miles Rajan DO Attending Provider Active Sta rt: August 23, 2025 End: August 23, 2025 Team Status: Active Member Role Status Dates Miles Rajan DO Primary Care Provider Active Team Status: Active Member Role Status Dates Miles Rajan DO Primary Care Provider Active Start: March 03, 2025 Ely Robert CMA Attending Provider Active Start: March 03, 2025 Team Status: Inactive Member Role Status Dates Miles Rajan DO Primary Care Provide r, Attending Provider Active Start: March 05, 2025 End: March 05, 2025 Team Status: Inactive Member Role Status Dates Miles Rajan DO Primary Care Provide r, Attending Provider Active Start: April 20, 2024 End: April 20, 2024 Team Status: Inactive Member Role Status Dates Miles Rajan DO Primary Care Provide r, Attending Provider Active Start: July 31, 2024 End: July 31, 2024 Straightening Roll Operator Relationship Specialty Start Date End Date Miles Rajan MD [address] [place] [address] PCP - General Internal Medicine 10/08/23 Straightening Roll Operator Relationship Specialty Start Date End Date Miles Rajan MD [address] [place] [address] PCP - General Internal Medicine 10/08/23 Team Status: Inactive Member Role Status Dates Miles Rajan DO Primary Care Provider Active Start: August 23, 2025 End: August 23, 2025 Miles Rajan DO Attending Provider Active Sta rt: August 23, 2025 End: August 23, 2025 Goals (unrecognized section and content) Goals may be documented in a n alternate section (unrecognized sect ion and content) No Status Records Found INFORMATION SOURCE (unrecogn ized section and content) DATE CREATED AUTHOR 10/19/2024 [facility] RECORDS PERTAINING TO PATIENTS WHO ARE [...] BE BASED ON THE PRIMARY CLINICAL RECORDS. [facility] [employer] [facility]. provides no warranty or guarantee of the accuracy or completeness of information in this document.
[2025-09-10 11:21] LABS: Hematocrit 42.2 % (42.0-54.0); Hemoglobin 14.2 g/dL (14.0-18.0); Immature Granulocytes Abs Auto 0.02 10^3/uL (0.00-0.03); Immature Granulocytes Pct Auto 0.3 % (0.0-0.5); Lymphocytes Absolute Auto 2.1 10^3/uL (1.2-3.8); Mean Corpuscular HGB Conc 33.6 g/dL (29.9-35.2); Mean Corpuscular Hemoglobin 30.1 pg (25.9-34.0); Mean Corpuscular Volume 89.4 fL (80.0-94.0); Platelet Count 370 10^3/uL (150-450); Red Blood Count 4.72 10^6/uL (4.70-6.10); White Blood Count 7.9 10^3/uL (4.0-11.0)
[2025-09-10 13:26] LABS: Ferritin 122.0 ng/mL (26.0-388.0)
[2025-09-10 14:28] LABS: Alanine Aminotransferase 29 U/L (16-63); Albumin Globulin Ratio 0.9; Albumin Level 4.0 g/dL (3.4-5.0); Alkaline Phosphatase 70 U/L (46-116); Anion Gap 11.2; Aspartate Amino Transferase 32 U/L (15-37); Blood Urea Nitrogen 18.0 mg/dL (7.0-18.0); Calcium 9.4 mg/dL (8.5-10.1); Carbon Dioxide 30.8 mmol/L (21.0-32.0); Chloride 99 mmol/L (98-107); Cholesterol 248 mg/dL (<=200); Creatine Kinase 230 U/L (39-308); Estimated GFR (African America >60 (>=60 mL/min/1.73m^2); Estimated GFR (Non-African Ame 58 (>=60 mL/min/1.73m^2); Globulin 4.3 g/dL; Glucose 103 mg/dL (74-106); HDL Cholesterol 69 mg/dL (40-60); Magnesium 2.3 mg/dL (1.8-2.4); Potassium 4.0 mmol/L (3.5-5.1); Sodium 137 mmol/L (136-145); Thyroid Stimulating Hormone 1.363 uIU/mL (0.358-3.740); Total Protein 8.3 g/dL (6.4-8.2); Triglycerides 92 mg/dL (<=150); VLDL CHOLESTEROL 18.4 mg/dL
[2025-09-11 07:08] LABS: Vitamin B12 249 pg/mL (232-1245)
--- OUTSIDE RECORDS SUMMARY | 2025-09-22 01:35 | XMS_ITS | CCD ---
Author Organization [facility] Care Team Providers Care Linux Unix Administrator Name Role Phone Miles Rajan Unavailable JEREMIE BYRNE Attending Unavailable JEREMIE BYRNE Referring Unavailable Miles Rajan MD Primary Care Provider Miles Rajan DO Primary Care Provider Miles Rajan DO Attending Provider Medications Current Medications MedicationDrug Class(es)DatesSig (Normalized)Sig (Original)acetaminophen 325 mg oral tablet (3 sources)acetaminophen (Tylenol) 325 MG tablet every 4 (four) hours. Active doxycycline hyclate 100 mg oral capsule (2 sources)Tetracycline-class DrugStart: 99-53-4780sfkc 1 capsule by mouth twice dailyDoxycycline Hyclate 100 MG 1 capsule Orally twice daily for 7 days May, Activeibuprofen 200 mg oral tablet (3 sources)Nonsteroidal Anti-inflammatory Drugibuprofen (Advil) 200 MG tablet every 8 (eight) hours. ActiveNo Name (No Known Home Meds) (1 source)Start: 27-22-6937By Name (No Known Home Meds) Active August 23, 2025 12:00am Completed/Discontinued Medications MedicationDrug Class(es)DatesSig (Normalized)Sig (Original)benzonatate 200 mg oral capsule (2 sources)Non-narcotic AntitussiveStart: 08-25-2024 End: 49-95-5633lkwj 1 capsule by mouth three times dailyBenzonatate 200 mg capsule Discontinued 200 MG PO Three times daily 30 August 25, 2024 12:00am August 23, 2025 10:37ametodolac 500 mg oral tablet (2 sources)Nonsteroidal Anti-inflammatory DrugStart: 03-05-2025 End: 38-91-7435nyra 1 tablet by mouth twice dailyEtodolac 500 mg tablet Discontinued 500 MG PO Twice daily March 05, 2025 12:00am August 23, 2025 10:37am Problems Problem ClassificationProblemDateDocumented DateEpisodic/ChronicAcute bronchitis (1 source)Acute bronchitis due to other specified organismsEpisodicCoagulation and hemorrhagic disorders (3 sources)Easy bruising; Translations: [Spontaneous ecchymoses]04-20-2024 EpisodicDeficiency and other anemia (4 sources)Anemia; Translations: [Anemia, unspecified]26-86-5955YojpbzhhYzkhpuu on above:FA, B12 normal, Fe borderline - ologuard negative 10/2024 Deficiency and other anemia (1 source)Anemia, unspecified; Translations: [Anemia, unspecified]07-31-2024 EpisodicHyperplasia of prostate (6 sources)Benign prostatic hypertrophy without outflow obstruction; Translations: [Benign prostatic hyperplasia without lower urinary tract symptoms]03-08-7856HomqqwhAmvfbtafuoitff (5 sources)Osteoarthritis of right hip joint; Translations: [Unilateral primary osteoarthritis, right hip]Onset: 382642-20-9796NkjbjsgEenem circulatory disease (6 sources)Elevated blood-pressure reading without diagnosis of hypertension; Translations: [Elevated blood-pressure reading, without diagnosis of hypertension]90-86-2563OiqbwrjxDgebp circulatory disease (2 sources)Elevated blood-pressure reading, without diagnosis of hypertension; Translations: [Elevated blood pressure reading without diagnosis of hypertension]54-15-1272HciipfqsSmhui connective tissue disease (5 sources)History of total hip arthroplasty; Translations: [Presence of right artificial hip joint]Onset: 021115-61-9683LfyqprkUpwwm nutritional; endocrine; and metabolic disorders (2 sources)Obesity; Translations: [Obesity, unspecified]38-54-3394HrfheddXmdqt nutritional; endocrine; and metabolic disorders (3 sources)Overweight; Translations: [Overweight]34-29-3943LzxgkhkuWtapy screening for suspected conditions (not mental disorders or infectious disease) (8 sources)Patient encounter status; Translations: [Encounter for screening for malignant neoplasm of prostate]38-79-2371OecovlizLxlnwvh on above:PSA: 4.07 - 09/2024, 02.10Spondylosis; intervertebral disc disorders; other back problems (4 sources)Lumbar spondylosis; Translations: [Spondylosis without myelopathy or radiculopathy, lumbar region]64-32-6993RxmphhyQdrxezvxbek; intervertebral disc disorders; other back problems (3 sources)Low back pain; Translations: [Low back pain radiating to left lower extremity]46-36-9648Iuxhjzbz Results Test NameValueInterpretationReference RangeFacilityXR Hip - right 3 Viewson 07-96-8430Chnlkts Result: October 13, 2024 x-rays AP and lateral of the right hip demonstrate a right total hip replacement in good position alignment without signs of loosening fracture or failure. Impression: Stable appearance of right total hip replacement Donovan Byrne D.O.[facility] CenterRadiology Study observation (narrative)[facility] Vital Signs Date TimeVital SignValuePerforming HlfvsiqxeEdrtfltf26-23-1329 10:39-0400Body irkfsn055.88 cmBenjamin Ball DO Work Phone: [phone]09-22-2025 10:39-0400 Body mass index (BMI) [Ratio]28.8 kg/g6Ghbjhcgk Ball DO Work Phone: [phone]09-22-2025 10:39-0400 Body dfluiv86.33 kgBenjamin Ball DO Work Phone: [phone]09-22-2025 10:39-0400 Diastolic blood poyymcfw49 mm[Hg]Miles Ball DO Work Phone: [phone]09-22-2025 10:39-0400 Heart rate71 /minBenjamin Ball DO Work Phone: [phone]09-22-2025 10:39-0400 Respiratory rate12 /minBenjamin Ball DO Work Phone: [phone]09-22-2025 10:39-0400 Systolic blood hghjjewi941 mm[Hg]Miles Ball DO Work Phone: [phone]04-04-2025 10:40-0400 Body .88 cmOhio[facility] Center04-04-2025 10:40-0400Body mass index (BMI) [Ratio]30.7 kg/x3NphhxlqzbOhiohealth [facility]ville [facility] Center04-04-2025 10:40-0400Body oceatj264.56 kgOhiohealth [facility]ville [facility] Center04-04-2025 10:40-0400Diastolic blood mm[Hg][facility] 03-05-2025 10:40-0400Heart rate61 /[facility] 03-05-2025 10:40-0400Respiratory rate12 /[facility] 03-05-2025 10:40-0400Systolic blood mm[Hg][facility]08-30-2024 09:03-0400Body .88 cmOhio[facility]08-30-2024 09:03-0400Body mass index (BMI) [Ratio]29.9 kg/k4CkrtzshixOhiohealth [facility]ville [facility] Center08-30-2024 09:03-0400Body xyphoq342.35 [facility]08-30-2024 09:03-0400Diastolic blood ufeirbou32 mm[Hg] [facility]08-30-2024 09:03-0400Heart rate69 /[facility]08-30-2024 09:03-0400Respiratory rate12 /[facility]08-30-2024 09:03-0400Systolic blood xcugvneu204 mm[Hg] [facility]05-20-2024 14:22-0400Body srgybt366.88 cm [facility]05-20-2024 14:22-0400Body mass index (BMI) [Ratio]29.7 kg/e4XakmmayfmOhiohealth Nelsonville Health Center05-20-2024 14:22-0400Body .33 kgOhiohealth [facility] Center05-20-2024 14:22-0400Diastolic blood tipjeuzw10 mm[Hg][facility]05-20-2024 14:22-0400 Heart rate81 /[facility]05-20-2024 14:22-0400 Respiratory rate12 /[facility]05-20-2024 14:22-0400 Systolic blood ivkpvoga569 mm[Hg][facility] Encounters Encounter DateEncounter TypeCare ProviderFacilityStart: 08-23-2025 End: 26-16-9099syrftlivsjHxvubfbz Ball DO Work Phone: [facility] Work Phone: Start: 08-23-2025 End: 86-47-4860Lsxfsko encounter procedureBenestella Rajan DO-[facility] Work Phone: Start: 03-05-2025 End: 99-61-5923usmgbauxbpGhbvrifpiMercy Health [facility] Work Phone: Start: 03-05-2025 End: 82-08-1019Zbyvfsm encounter procedureFircarilion [facility] Work Phone: Start: 05-25-1280Zej-patient / Non-visitFircarilion [facility] Work Phone: Start: 10-13-2024 End: 98-34-8339Ybinbx flowsheetJeremie Byrne DO Work Phone: [facility]AEDICSStart: 10-13-2024 End: 51-38-4376Moirhx flowsheetJeremie Byrne DO Work Phone: [facility]OPAEDICSStart: 10-13-2024 End: 29-34-2249Pdxuwr outpatient visit 10 minutesJajassi Byrne DO Work Phone: [facility] ORTHOPAEDICSComment on above:Primary osteoarthritis of right hip; Status post total replacement of right hipStart: 10-13-2024 End: 76-63-0345ennmtthokhRKYVM A HUDDLESTONNot AvailableStart: 07-31-2024 End: 97-07-1617fwidxrocxkOtiegrwdvSt. Vincent Hospital Work Phone: Start: 07-31-2024 End: 27-99-4863Evoawab encounter procedureUn[facility] Work Phone: Start: 04-20-2024 End: 84-33-7235igvyyfoupfEgueqilgg [facility] Work Phone: Start: 04-20-2024 End: 92-39-6568Mxbnjaf encounter procedureUn[facility] Work Phone: Start: 05-07-2023 End: 99-71-4706zpmhgqcomxYcyyoxgp Satinder Other [place] [facility] Other Start: 10-67-6412Dfiijk outpatient visit 15 minutes Miles RajanUziel [facility] ClinicStart: 78-65-2130Bqznemfhw encounterBenPomerene Hospital [facility] Procedures DateProcedureProcedure DetailPerforming ClinicianStart: 40-00-5692Cisjt hip unilateral with pelvis 2-3 viewsJames A Chavez DO Work Phone: Plan of Treatment DateCare ActivityDetailAuthorPatient EducationLow back pain in adultsUniversity Hospitals [facility] Center Work Phone: [facility] Immunizations Immunization DateImmunizationNotesCare ZwtojyauYkfdjylr25-45-6723AKIDA-58 mRNA- 1273 (Moderna)Miles Satinder DO Work Phone: [facility]04-23-2021COVID-19 mRNA-1273 (Moderna)Miles Satinder DO Work Phone: [facility]03-26-2021COVID-19 mRNA-1273 (Moderna)Miles Satinder DO Work Phone: [facility] Payers DatePayer CategoryPayerPolicy ID2023Medicare (Managed Care)[facility] [id number] [id number] [id number] [id number] Insurance [id number] Social History DateTypeDetailFacilitySex Assigned At [facility] Other Start: 78-00-3138Avh Assigned At [facility] HospitalTobacco smoking status NHISTobacco smoking consumption unknownMOUNTAINSTAR HEALTHCARE HealthcareStart: 03-23-2921Ixm assigned at birthNot on fileMOUNTAINSTAR HEALTHCARE HealthcareStart: 03-62-9422UobRjdk (finding)[facility] Start: 96-79-8223Pwmtngw smoking status NHISNever smoked tobacco (finding) [facility] History of Present illness Narrative 10-13-2024 Note Date & IfuhJzoeGfyknglc64-22-4712 History of Present illness Narrative* Jeremie Byrne, - 10/13/2024 10:45 AM EST Images from the original note were not [...] if he desires a referral to another event lighting specialist we would be happy to make referral, he states he would like to continue his care here if he needed. William Byrne D.O. documented in this encounterResearch [facility] Evaluation note 05-07-2023 Note Date & EqrpPppiYazuaegr84-47-8778 Evaluation note* Encounter Date Diagnosis Assessment Notes Treatment Notes Treatment Clinical Notes May, Acute bronchitis due to other sp ecified organisms (ICD-10 - J20.8) Instructed to use Robitussin or Mucinex for cough, saline or Flonase NS for congestion, Tylenol forpain and fever. [facility] Other Evaluation note Note Date & TypeNoteFacilityEvaluation noteNo InformationNocass medical center [facility] Other Evaluation note Note Date & TypeNoteFacilityEvaluation noteNo assessment information available [facility] Work Phone: Evaluation note Note Date & TypeNoteFacilityEvaluation note* Diagnosis Onset Date Resolution Status Anemia acuteBenign prostatic hyperplasia with lower urinary tract symptomsacuteElevated BP without diagnosis of hypertensionacuteScreening PSA (prostate specific antigen)acuteMedicare annual wellness visit, subsequentnoneactive [facility] Work Phone: Evaluation note Note Date & TypeNoteFacilityEvaluation note* Diagnosis Primary osteoarthritis of right hip Status post total replacement of right hip documented in this encounter [facility] Evaluation note Note Date & TypeNoteFacilityEvaluation note* Diagnosis Onset Date Resolution Status Admit Date Elevated BP without diagnosis of hyperte nsion acuteApril 2024 10:09amLow back pain radiating to left lower extremityacute March 05, 2025 10:09amLumbar spondylosisacuteApril 2024 10:09am [facility] Work Phone: Evaluation note Note Date & TypeNoteFacilityEvaluation note* Diagnosis Onset Date Resolution Status Admit Date Anemia acuteSeptember 2024 10:20amElevated BP without diagnosis of hypertension acuteSeptember 2024 10:20amLumbar spondylosisacuteSeptember 2024 10:20amObesityacuteSeptember 2024 10:20amScreening PSA (prostate specific antigen)acuteSeptember 2024 10:20amMedicare annual wellness visit, subsequentnoneactiveSeptember 2024 10:20am [facility] Work Phone: History general Narrative - Reported Note Date & TypeNoteFacilityHistory general Narrative - Reported* Type Description Date Medical History BPH without obstruction/lower ur inary tract symptoms Medical HistoryElevated blood pressure (not hypertension)Surgical HistoryRIGHT SHOULDER ARTHROSCOPYSurgical HistoryRIGHT TOTAL HIP BIRXGCVKLATZ3128Tuhajaob HistoryARTHROSCOPY, KNEE LEFTHospitalization HistorySEE SURGICAL HX [facility] [employer] Other Reason for referral (narrative) Note Date & TypeNoteFacilityReason for referral (narrative)No reason for referral information availableUniversity Hospitals [facility] Work Phone: Chief Complaint and Reason for Visit Chief Complaint BRUSING EASILY Chief Complaint wellness Reason for Visit Anemia Benign prostatic hyperplasia with lower urinary tract symptoms Elevated BP without diagnosis of hypertension Screening PSA (prostate specific antigen) Medicare annual wellness visit, subsequent Chief Complaint Admit Date Amb Documentation March 03, 2025 11:2 2am ER follow up, sciatica pain March 05 10:09am Reason for Visit Admit Date Elevated [...] FOR VISIT (unrecogniz ed section and content) ReasonCommentsFollow-upsinus infection? bad loose cough Care Teams (unrecognized sec tion and content) Team Status: Active Member Role Status Kp Rajan DO Primary Care Provider Active Team Status: Inactive Member Role Status Dates Miles Rajan DO Primary Care Provider Active Start: August 23, 2025 End: August 23ponce Rajan DOAttending ProviderActiveStart: August 23, 2025 End: August 23, 2025 Team Status: Active Member Role Status Dates Miles Ball , DO Primary Care Provider Active Team Status: Active Member Role Status Dates Miles Rajan Primary Care Provider Active Start: March 03, 2025 Ely Gildardo Robertjosue ProviderActiveStart: March 03, 2025 Team Status: Inactive Member Role Status Dates Miles Rajan DO Primary Care Provide r, Attending Provider Active Start: March 05, 2025 End: March 05, 2025 Team Status: Inactive Member Role Status Dates Miles Rajan DO Primary Care Provide r, Attending Provider Active Start: April 20, 2024 End: April 20, 2024 Team Status: Inactive Member Role Status Dates Miles Rajan Primary Care Provide r, Attending Provider Active Start: July 31, 2024 End: July 31, 2024Team MemberRelationshipSpecialtyStart DateEnd Date Miles Rajan MD [address] [place] [address] PCP - GeneralInternal Vqiagzyf92/7/23Team MemberRelationshipSpecialtyStart Date End Date Miles Rajan MD [address] [place] [id number] [facility] - [facility] Hospitalnal Dcqtqgdt36/7/23 Team Status: Inactive Member Role Status Dates Miles Rajan DO Primary Care Provider Active Start: August 23, 2025 End: August 23enestella Satinder Attending ProviderActiveStart: August 23, 2025 End: August 23, 2025 Goals (unrecognized section and content) Goals may be documented in a n alternate section (unrecognized sect ion and content) No Status Records Found INFORMATION SOURCE (unrecogn ized section and content) DATE CREATED AUTHOR 10/19/2024 [facility] EPIC FOR RECORDS PERTAINING TO PATIENTS [...] BE BASED ON THE PRIMARY CLINICAL RECORDS. [facility]. provides no warranty or guarantee of the accuracy or completeness of information in this document.
--- OUTSIDE RECORDS SUMMARY | 2025-09-22 01:36 | XMS_ITS | Clinical Summary ---
Author Organization [facility] Address [id number] [address] [place] [address] Care Team Providers Care Cnc Machine Programmer Name Role Phone Robe Hurley MD Primary Care Provider [phone] Allergies No known active allergies Medications No known medications Active Problems ProblemNoted DateDiagnosed DatePrimary osteoarthritis of right hip08/05/2019 Social History Tobacco UseTypesPacks/DayYears UsedDateSmoking Tobacco: FormerCigarsQuit: 07/05/2019Smokeless Tobacco: NeverAlcohol UseStandard Drinks/WeekCommentsNever0 (1 standard drink = 0.6 oz pure alcohol)AUDIT-CAnswerDate RecordedFrequency of Alcohol LqkcdvuapsvGmhlj65/08/2019Average Number of DrinksNot on file07/09/2019 Frequency of Binge DrinkingNot on file07/09/2019ChildcareAnswerDate Recorded WxbljpeojCauhpjz01/12/2019EmploymentAnswerDate RecordedEmploymentUnknown 05/13/2019Purpose - LifeAnswerDate RecordedPurpose and direction in lifeUnknown 1Sex and Gender InformationValueDate RecordedSex Assigned at BirthNot on fileLegal JhuDcde0707/07/2015 11:50 AM EDTGender IdentityNot on fileSexual OrientationNot on file Last Filed Vital Signs Vital SignReadingTime TakenCommentsBlood Xoccwdkj873/6109 11:58 AM EDT Fvzix595708/07/2019 11:58 AM ECRHtazptnpsfy93.2 ??C (98.9 ??F)08/07/2019 11:58 AM EDTRespiratory Ocre2003/05/2019 11:58 AM EDTOxygen Krikjhndrp95%08/07/2019 11:58 AM EDTInhaled Oxygen Concentration--Vajssw286.8 kg (235 lb 6.4 oz)08/07/2019 4:12 AM RVYXbpjxt752.4 cm (6' 1 )08/06/2019 12:41 PM EDTBody Mass Index31.06 08/06/2019 12:41 PM EDT Plan of Treatment Health MaintenanceDue DateLast DoneCommentsDepression Nivrdtpcu55/07/1964Tobacco Kpnkdcmjh20/07/1964Adult BMI Kwwbcuqtf87/07/1970DTaP,Tdap and Td Vaccines (1 - Tdap)1971Zoster (Shingles) Vaccine (1 of 2)2002Fall Risk Screening 2017Influenza Rfgkizl6508/02/2025 Medical Devices ImplantedTypeAreaManufacturerDevice IdentifierShelf Expiration DateModel / Serial / LotShl Actb 60mm Hip Prm Mdlr Ch - Sna - [id number] Implanted:Qty: 1 on 08/05/2019 by Vincent Byrne DO at [facility] ImplantRight: HipZimmer Oohzav1605/31/2026 [id number] / NA / [id number] Actb 60mm 36mm Std Ntrl - Sna - [id number] Implanted:Qty: 1 on 08/05/2019 by Vincent Byrne DO at [facility] ImplantRight: HipZimmer Wsqqos4409/01/2019 [id number] / NA / [id number] Fem 129d 5 46mm 11/14 B - Sna - [id number] Implanted:Qty: 1 on 08/05/2019 by Vincent Byrne DO at [facility] ImplantRight: HipZimmer [id number] / NA / [id number] Fem 36mm +3.5mm 11/14 Vrsy Rpl [id number] - Sna - [id number] Implanted:Qty: 1 on 08/05/2019 [facility]: HipZimmer Pyhypq6210/01/2028 [id number] / NA / [id number] Bn Flo 30mm 6.5mm Hip St Rpl [id number] + [id number] + [id number] - Sna - [id number] Implanted:Qty: 1 on 08/05/2019 by [facility]: HipZimmer [id number] / NA / [id number] Bn Hip Flo St 25mm 6.5mm Rpl [id number] + [id number] + [id number] - Sna - [id number] Implanted:Qty: 1 on 08/05/2019 by Vnicent Byrne DO at [facility]: HipZimmer [id number] / NA / [id number] [place] [address] Advance Directives * Full Code (Latest Code Status on File) Date ActivatedDate InactivatedComments08/05/2019 2:08 PM08/07/2019 5:02 PM Care Teams Team MemberRelationshipSpecialtyStart DateEnd Date Robe Hurley [place] [address] PCP - GeneralFamily Medicine8/8/19
--- OUTSIDE RECORDS SUMMARY | 2025-09-22 01:36 | XMS_ITS | Clinical Summary ---
Author Organization [facility] Address [address] [place] [address] Care Team Providers Care Compound Coating Machine Offbearer Name Role Phone Miles Rajan DO Primary Care Provider [phone] Allergies No known active allergies Medications MedicationSigDispense QuantityRefillsLast FilledStart DateEnd DateStatus ibuprofen (Advil) 200 MG tablet every 8 (eight) hours.Active acetaminophen (Tylenol) 325 MG tablet every 4 (four) hours.Active amoxicillin (Amoxil) 500 MG tablet Indications:Status post total replacement of right hip4 tabs PO once 30-60 mins before procedure with food 4 tablet 5Active Active Problems ProblemNoted DateDiagnosed DatePrimary osteoarthritis of right hip10/07/2023 Status post total replacement of right hip10/07/2023 Social History Tobacco UseTypesPacks/DayYears UsedDateSmoking Tobacco: Never AssessedSex and Gender InformationValueDate RecordedSex Assigned at BirthNot on fileLegal Sex Male02/13/2023 7:11 PM EDTGender IdentityNot on fileSexual OrientationNot on file Last Filed Vital Signs Vital SignReadingTime TakenCommentsBlood Hiyuwauk881/8208 12:00 PM EDT Pulse--Temperature--Respiratory Rate--Oxygen Saturation--Inhaled Oxygen Concentration--Atuiyb48.3 kg (219 lb)10/08/2023 1:14 PM UUWLmgvin197.9 cm (6') 10/08/2023 1:14 PM ESTBody Mass Index29.7112/08/2022 1:14 PM EST Plan of Treatment Not on file Insurance Care Teams Team MemberRelationshipSpecialtyStart DateEnd Date Miles Rajan DO PCP - GeneralInternal Imctjrgm60/7/23
== END 2025-09-09 09:44 ==
PROVIDERS: PCP Internal Medicine; Visit Provider Internal Medicine
DX: M79.10 Myalgia, unspecified site (principal); R03.0 Elevated blood-pressure reading, without diagnosis of hypertension; D64.9 Anemia, unspecified; R20.8 Other disturbances of skin sensation; Z12.5 Encounter for screening for malignant neoplasm of prostate; R53.83 Other fatigue; E78.00 Pure hypercholesterolemia, unspecified
CPT/HCPCS: 36415; 80053; 80061; 82550; 82607; 82728; 82746; 83735; 84443; 85025; 86140; G0103

== ENCOUNTER 2025-09-23 17:07 | Emergency (ER) | payer OTHER, SELFPAY ==
[2025-09-23 17:13] VITALS: BP 200/100; PULSE 80; TEMP 36.8; O2SAT 97; BMI 28.8
--- OUTSIDE RECORDS SUMMARY | 2025-09-23 17:17 | XMS_ITS | Clinical Summary ---
Author Organization [facility] tem Address [id number] [address] [place] [address] Care Team Providers Care Siebel Crm Developer Name Role Phone oRbe Hurley MD Primary Care Provider [phone] Allergies No known active allergies Medications No known medications Active Problems ProblemNoted DateDiagnosed DatePrimary osteoarthritis of right hip08/05/2019 Social History Tobacco UseTypesPacks/DayYears UsedDateSmoking Tobacco: FormerCigarsQuit: 07/05/2019Smokeless Tobacco: NeverAlcohol UseStandard Drinks/WeekCommentsNever0 (1 standard drink = 0.6 oz pure alcohol)AUDIT-CAnswerDate RecordedFrequency of Alcohol BkuqhlrflmhQixzh41/08/2019Average Number of DrinksNot on file07/09/2019 Frequency of Binge DrinkingNot on file07/09/2019ChildcareAnswerDate Recorded WjcwlbzbpBlckfsm51/12/2019EmploymentAnswerDate RecordedEmploymentUnknown 05/13/2019Purpose - LifeAnswerDate RecordedPurpose and direction in lifeUnknown 1Sex and Gender InformationValueDate RecordedSex Assigned at BirthNot on fileLegal AesMefn6307/07/2015 11:50 AM EDTGender IdentityNot on fileSexual OrientationNot on file Last Filed Vital Signs Vital SignReadingTime TakenCommentsBlood Mhwzcicx860/6109 11:58 AM EDT Cvflc762408/07/2019 11:58 AM BTENkhfhzscrzv44.2 ??C (98.9 ??F)08/07/2019 11:58 AM EDTRespiratory Piza8314/05/2019 11:58 AM EDTOxygen Sobyjzsdns63%08/07/2019 11:58 AM EDTInhaled Oxygen Concentration--Sxzsmm138.8 kg (235 lb 6.4 oz)08/07/2019 4:12 AM MNHIkgtxj850.4 cm (6' 1 )08/06/2019 12:41 PM EDTBody Mass Index31.06 08/06/2019 12:41 PM EDT Plan of Treatment Health MaintenanceDue DateLast DoneCommentsDepression Kiwwewifr16/07/1964Tobacco Rrrijlcon13/07/1964Adult BMI Sbyxtwsak34/07/1970DTaP,Tdap and Td Vaccines (1 - Tdap)1971Zoster (Shingles) Vaccine (1 of 2)2002Fall Risk Screening 2017Influenza Jpeyvff9008/02/2025 Medical Devices ImplantedTypeAreaManufacturerDevice IdentifierShelf Expiration DateModel / Serial / LotShl Actb 60mm Hip Prm Mdlr Ch - Sna - [id number] Implanted:Qty: 1 on 08/05/2019 by Vincent Byrne DO at [facility] ImplantRight: HipZimmer Rfrzmv8805/31/2026 [id number] / NA / [id number] Actb 60mm 36mm Std Ntrl - Sna - [id number] Implanted:Qty: 1 on 08/05/2019 by Vincent Byrne DO at [facility] ImplantRight: HipZimmer Wjmrwl6309/01/2019 [id number] / NA / [id number] Fem 129d 5 46mm 11/14 B - Sna - [id number] Implanted:Qty: 1 on 08/05/2019 by Vincent Byrne DO at [facility] ImplantRight: HipZimmer [id number] / NA / [id number] Fem 36mm +3.5mm 11/14 Vrsy Rpl [id number] - Sna - [id number] Implanted:Qty: 1 on 08/05/[facility]: HipZimmer Evgwxw3410/01/2028 [id number] / NA / [id number] Bn Flo 30mm 6.5mm Hip St Rpl [id number] + [id number] + [id number] - Sna - [id number] Implanted:Qty: 1 on 08/05/[facility] HipZimmer [id number] / NA / [id number] Bn Hip Flo St 25mm 6.5mm Rpl [id number] + [id number] + [id number] - Sna - [id number] Implanted:Qty: 1 on 08/05/2019 [facility] HipZimmer [id number] / NA / [id number] [place] [address] Advance Directives * Full Code (Latest Code Status on File) Date ActivatedDate InactivatedComments08/05/2019 2:08 PM08/07/2019 5:02 PM Care Teams Team MemberRelationshipSpecialtyStart DateEnd Date Robe Hurley [place] [address] PCP - GeneralFamily Medicine8/8/19
--- OUTSIDE RECORDS SUMMARY | 2025-09-23 17:17 | XMS_ITS | Clinical Summary ---
Author Organization [facility] Address [address] [place] [address] Care Team Providers Care Geophysical Laboratory Chief Name Role Phone Miles Rajan DO Primary Care Provider [phone] Allergies No known active allergies Medications MedicationSigDispense [...] Last Filed Vital Signs Vital SignReadingTime TakenCommentsBlood Ypanwkjy338/8208 12:00 PM EDT Pulse--Temperature--Respiratory Rate--Oxygen Saturation--Inhaled Oxygen Concentration--Erljyb01.3 kg (219 lb)10/08/2023 1:14 PM TPSUygnxv485.9 cm (6') 10/08/2023 1:14 PM ESTBody Mass Index29.7112/08/2022 1:14 PM EST Plan of Treatment Not on file Insurance Care Teams Team MemberRelationshipSpecialtyStart DateEnd Date Miles Rajan DO PCP - GeneralInternal Gkslhazv37/7/23
--- OUTSIDE RECORDS SUMMARY | 2025-09-23 17:18 | XMS_ITS | CCD ---
Author Organization [facility] Care Team Providers Care Print Color Matcher Name Role Phone Miles Rajan Unavailable JEREMIE BYRNE Attending Unavailable JEREMIE BYRNE Referring Unavailable Miles Rajan MD Primary Care Provider Miles Rajan DO Primary Care Provider [phone] Miles Rajan DO Attending Provider [phone] Medications Current Medications MedicationDrug Class(es)DatesSig (Normalized)Sig (Original)acetaminophen 325 mg oral tablet (3 sources)acetaminophen (Tylenol) 325 MG tablet every 4 (four) hours. Active doxycycline hyclate 100 mg oral capsule (2 sources)Tetracycline-class DrugStart: 73-24-2023rzip 1 capsule by mouth twice dailyDoxycycline Hyclate 100 MG 1 capsule Orally twice daily for 7 days May, Activeibuprofen 200 mg oral tablet (3 sources)Nonsteroidal Anti-inflammatory Drugibuprofen (Advil) 200 MG tablet every 8 (eight) hours. ActiveNo Name (No Known Home Meds) (1 source)Start: 93-41-8699Pj Name (No Known Home Meds) Active August 23, 2025 12:00am Completed/Discontinued Medications MedicationDrug Class(es)DatesSig (Normalized)Sig (Original)benzonatate 200 mg oral capsule (2 sources)Non-narcotic AntitussiveStart: 08-25-2024 End: 58-71-9859yfee 1 capsule by mouth three times dailyBenzonatate 200 mg capsule Discontinued 200 MG PO Three times daily 30 August 25, 2024 12:00am August 23, 2025 10:37ametodolac 500 mg oral tablet (2 sources)Nonsteroidal Anti-inflammatory DrugStart: 03-05-2025 End: 17-88-1741yvti 1 tablet by mouth twice dailyEtodolac 500 mg tablet Discontinued 500 MG PO Twice daily March 05, 2025 12:00am August 23, 2025 10:37am Problems Problem ClassificationProblemDateDocumented DateEpisodic/ChronicAcute bronchitis (1 source)Acute bronchitis due to other specified organismsEpisodicCoagulation and hemorrhagic disorders (3 sources)Easy bruising; Translations: [Spontaneous ecchymoses]04-20-2024 EpisodicDeficiency and other anemia (4 sources)Anemia; Translations: [Anemia, unspecified]84-91-6122QbxulvovMkuiyzn on above:FA, B12 normal, Fe borderline - ologuard negative 10/2024 Deficiency and other anemia (1 source)Anemia, unspecified; Translations: [Anemia, unspecified]07-31-2024 EpisodicHyperplasia of prostate (6 sources)Benign prostatic hypertrophy without outflow obstruction; Translations: [Benign prostatic hyperplasia without lower urinary tract symptoms]95-83-5746LsqldfdMzzbspvtizojtb (5 sources)Osteoarthritis of right hip joint; Translations: [Unilateral primary osteoarthritis, right hip]Onset: 437856-72-1119PynqznaEfnvw circulatory disease (6 sources)Elevated blood-pressure reading without diagnosis of hypertension; Translations: [Elevated blood-pressure reading, without diagnosis of hypertension]31-85-0296UxfruefkUaxpq circulatory disease (2 sources)Elevated blood-pressure reading, without diagnosis of hypertension; Translations: [Elevated blood pressure reading without diagnosis of hypertension]35-03-7004OvhswllzXccjd connective tissue disease (5 sources)History of total hip arthroplasty; Translations: [Presence of right artificial hip joint]Onset: 405420-28-9921GgtehzhQujft nutritional; endocrine; and metabolic disorders (2 sources)Obesity; Translations: [Obesity, unspecified]15-81-4060JzjxuomQsznf nutritional; endocrine; and metabolic disorders (3 sources)Overweight; Translations: [Overweight]57-09-9449RoccjcjnUgmlz screening for suspected conditions (not mental disorders or infectious disease) (8 sources)Patient encounter status; Translations: [Encounter for screening for malignant neoplasm of prostate]35-94-3604TlobddrnOlxuzrl on above:PSA: 4.07 - 09/2024, 02.10Spondylosis; intervertebral disc disorders; other back problems (4 sources)Lumbar spondylosis; Translations: [Spondylosis without myelopathy or radiculopathy, lumbar region]17-35-1650CwqocvkTqmbcwhpoux; intervertebral disc disorders; other back problems (3 sources)Low back pain; Translations: [Low back pain radiating to left lower extremity]26-22-9403Fwcczfuz Results Test NameValueInterpretationReference RangeFacilityXR Hip - right 3 Viewson 26-23-9749Owpxaky Result: October 13, 2024 x-rays AP and lateral of the right hip demonstrate a right total hip replacement in good position alignment without signs of loosening fracture or failure. Impression: Stable appearance of right total hip replacement Donovan Byrne D.O.[facility]Rad[facility] observation (narrative)[facility] Vital Signs Date TimeVital SignValuePerforming RvoptvpyaFzurhirg95-15-7108 10:39-0400Body nooall466.88 cmBenjamin Ball DO Work Phone: [phone]09-22-2025 10:39-0400 Body mass index (BMI) [Ratio]28.8 kg/v5Hgqmdopp Ball DO Work Phone: [phone]09-22-2025 10:39-0400 Body .33 kgBenjamin Ball DO Work Phone: [phone]09-22-2025 10:39-0400 Diastolic blood wuuuepsa97 mm[Hg]Miles Ball DO Work Phone: [phone]09-22-2025 10:39-0400 Heart rate71 /minBenjamin Ball DO Work Phone: [phone]09-22-2025 10:39-0400 Respiratory rate12 /minBenjamin Ball DO Work Phone: [phone]09-22-2025 10:39-0400 Systolic blood cyzwarbf535 mm[Hg]Miles Ball DO Work Phone: [phone]04-04-2025 10:40-0400 Body lssutq624.88 cmAcmc Healthcare System04-04-2025 10:40-0400Body mass index (BMI) [Ratio]30.7 kg/p1CvgbdhjrdAcmc Healthcare System04-04-2025 10:40-0400Body lzfirh820.56 kgAcmc Healthcare System04-04-2025 10:40-0400Diastolic blood mzersbqj36 mm[Hg][facility] 03-05-2025 10:40-0400Heart rate61 /[facility] 03-05-2025 10:40-0400Respiratory rate12 /[facility] 03-05-2025 10:40-0400Systolic blood xdxutghv414 mm[Hg][facility]08-30-2024 09:03-0400Body lcpkir844.88 cmAcmc [facility] System08-30-2024 09:03-0400Body mass index (BMI) [Ratio]29.9 kg/r3YpdvjhztvAcmc Healthcare System08-30-2024 09:03-0400Body ufpzrl303.35 [facility]08-30-2024 09:03-0400Diastolic blood rpamtuqz86 mm[Hg] [facility]08-30-2024 09:03-0400Heart rate69 /[facility]08-30-2024 09:03-0400Respiratory rate12 /[facility]08-30-2024 09:03-0400Systolic blood upmokhvp887 mm[Hg] [facility]05-20-2024 14:22-0400Body ezngto587.88 cm [facility]05-20-2024 14:22-0400Body mass index (BMI) [Ratio]29.7 kg/v4BxjzolicvAcmc Healthcare System05-20-2024 14:22-0400Body vufysj61.33 kgAcmc Healthcare System05-20-2024 14:22-0400Diastolic blood iniwyxnk98 mm[Hg][facility]05-20-2024 14:22-0400 Heart rate81 /[facility]05-20-2024 14:22-0400 Respiratory rate12 /[facility]05-20-2024 14:22-0400 Systolic blood fdoopymo351 mm[Hg][facility] Encounters Encounter DateEncounter TypeCare ProviderFacilityStart: 08-23-2025 End: 20-27-0298oeepogqnamBnzthimr Ball DO Work Phone: [facility] Work Phone: Start: 08-23-2025 End: 61-79-2055Hqthbro encounter procedureBenestella Rajan DO-[facility] Work Phone: Start: 03-05-2025 End: 63-12-1876tvdbmnnraeUzglbgxnmHolzer Health System Work Phone: Start: 03-05-2025 End: 13-06-9776Lquoduk encounter procedureFircentra [facility] Work Phone: Start: 11-85-6904Cmr-patient / Non-visitFircentra [facility] Work Phone: Start: 10-13-2024 End: 03-92-5932Ohmhoi flowsheetJeremie Byrne DO Work Phone: [facility]AEDICSStart: 10-13-2024 End: 30-11-4994Eplvko flowsheetJeremie Byrne DO Work Phone: [facility]THOPAEDICSStart: 10-13-2024 End: 66-24-1192Fgkufl outpatient visit 10 minutesJajassi Byrne DO Work Phone: [facility]THOPAEDICSComment on above:Primary osteoarthritis of right hip; Status post total replacement of right hipStart: 10-13-2024 End: 67-23-2774vbpcrsigeaQLPLA A HUDDLESTONNot AvailableStart: 07-31-2024 End: 16-81-1925tubunlgjreGkiuwlexiMcKitrick Hospital Work Phone: Start: 07-31-2024 End: 90-86-5878Whfxpsx encounter procedureUn[facility] Work Phone: Start: 04-20-2024 End: 41-97-5914sgnvfpxttyQozlyyfpj [facility] Work Phone: Start: 04-20-2024 End: 65-18-3889Pwuzkmp encounter procedureUn[facility] Work Phone: Start: 05-07-2023 End: 54-43-4983ttzqzhwkquCjuacvrw S[place]der Other [place] [employer] Other Start: 36-35-3869Pahmyy outpatient visit 15 minutes Miles RajanUziel [facility] Medical ClinicStart: 79-91-0247Npauyuuax encounterBenFirelands Regional [facility] Procedures DateProcedureProcedure DetailPerforming ClinicianStart: 15-70-3766Pqhjp hip unilateral with pelvis 2-3 viewsJames A Chavez DO Work Phone: Plan of Treatment DateCare ActivityDetailAuthorPatient EducationLow back pain in adultsClinton Memorial Hospital Work Phone: [facility] Immunizations Immunization DateImmunizationNotesCare ExzovmdnJjzwedum29-21-8372INOOM-51 mRNA- 1273 (Moderna)Miles Satinder DO Work Phone: [facility]04-23-2021COVID-19 mRNA-1273 (Moderna)Miles Satinder DO Work Phone: [facility]03-26-2021COVID-19 mRNA-1273 (Moderna)Miles Satinder DO Work Phone: [facility] Payers DatePayer CategoryPayerPolicy ID2023Medicare (Managed Care)[facility] [id number] [id number] [id number] [id number] Insurance [id number] Social History DateTypeDetailFacilitySex Assigned At [facility] Other Start: 82-99-7573Dal Assigned At [facility] HospitalTobacco smoking status NHISTobacco smoking consumption unknownACADIA HEALTHCARE HealthcareStart: 51-84-7846Rhl assigned at birthNot on fileACADIA HEALTHCARE HealthcareStart: 12-54-8901KbmKyjg (finding)[facility] Start: 51-47-7114Rnfhydk smoking status NHISNever smoked tobacco (finding) [facility] History of Present illness Narrative 10-13-2024 Note Date & IzepLxdaNywelatd20-70-2748 History of Present illness Narrative* Jeremie Byrne, [...] if he desires a referral to another program development specialist we would be happy to make referral, he states he would like to continue his care here if he needed. William Byrne D.O. [facility] note 05-07-2023 Note Date & QibyKpanUzebkqhe64-16-8825 Evaluation note* Encounter Date Diagnosis Assessment Notes Treatment Notes Treatment Clinical Notes May, Acute bronchitis due to other sp ecified organisms (ICD-10 - J20.8) Instructed to use Robitussin or Mucinex for cough, saline or Flonase NS for congestion, Tylenol forpain and fever. [employer] Other Evaluation note Note Date & TypeNoteFacilityEvaluation noteNo InformationNosaint luke's health system In [facility] Other Evaluation note Note Date & TypeNoteFacilityEvaluation noteNo assessment information available [facility] Work Phone: Evaluation note Note Date & TypeNoteFacilityEvaluation note* Diagnosis Onset Date Resolution Status Anemia acuteBenign prostatic hyperplasia with lower urinary tract symptomsacuteElevated BP without diagnosis of hypertensionacuteScreening PSA (prostate specific antigen)acuteMedicare annual wellness visit, subsequentnoneactive [facility] Work Phone: Evaluation note Note Date & TypeNoteFacilityEvaluation note* Diagnosis Primary osteoarthritis of right hip Status post total replacement of right hip documented in this encounter [facility] Evaluation note Note Date & TypeNoteFacilityEvaluation note* Diagnosis Onset Date Resolution Status Admit Date Elevated BP without diagnosis of hyperte nsion acuteApril 2024 10:09amLow back pain radiating to left lower extremityacute March 05, 2025 10:09amLumbar spondylosisacuteApril 2024 10:09am [facility] Work Phone: Evaluation note Note Date & TypeNoteFacilityEvaluation note* Diagnosis Onset Date Resolution Status Admit Date Anemia acuteSeptember 2024 10:20amElevated BP without diagnosis of hypertension acuteSeptember 2024 10:20amLumbar spondylosisacuteSeptember 2024 10:20amObesityacuteSeptember 2024 10:20amScreening PSA (prostate specific antigen)acuteSeptember 2024 10:20amMedicare annual wellness visit, subsequentnoneactiveSeptember 2024 10:20am [facility] Work Phone: History general Narrative - Reported Note Date & TypeNoteFacilityHistory general Narrative - Reported* Type Description Date Medical History BPH without obstruction/lower ur inary tract symptoms Medical HistoryElevated blood pressure (not hypertension)Surgical HistoryRIGHT SHOULDER ARTHROSCOPYSurgical HistoryRIGHT TOTAL HIP RUWGVDTZMHBT5272Gpuazxpd HistoryARTHROSCOPY, KNEE LEFTHospitalization HistorySEE SURGICAL HX [facility] [employer] Other Reason for referral (narrative) Note Date & TypeNoteFacilityReason for referral (narrative)No reason for referral information availableClinton Memorial Hospital Work Phone: Chief Complaint and Reason [...] DateEnd Date Miles Rajan MD [address] [place] [address] PCP - GeneralInternal Qynmrkdx89/7/23Team MemberRelationshipSpecialtyStart Date End Date Miles Rajan MD [address] [place] [id number] [facility] - [facility]nal Bdrracyy72/7/23 Team Status: Inactive Member Role Status Dates [...] section and content) DATE CREATED AUTHOR 10/19/2024 [facility] EPIC FOR RECORDS PERTAINING [...] BE BASED ON THE PRIMARY CLINICAL RECORDS. [facility]. provides no warranty or guarantee of the accuracy or completeness of information in this document.
--- NOTE | 2025-09-23 17:29 | XR_ITS ---
The [address] [address] Patient Name: LYDIA REIS MRN: [id number] date: 1950 Sex: M Assigned Patient Location: ER Current Patient Location: ER Accession/Order Number: [id number] Exam Date: 09/23/2025 17:50 Report Date: 09/23/2025 18:18 At the request of: JAMI PAT MD Procedure: XR abdomen 1V Single view abdomen INDICATION: Constipation COMPARISON: None FINDINGS: Moderate stool burden rectosigmoid junction may represent fecal impaction and/or constipation. There is hvsx-uj-lqmcndty stool burden involving the remaining colon. No findings of small bowel obstruction. No definite free air. Lung bases are grossly clear. Multilevel degenerative changes of lumbar spine. No definite soft tissue calculations. XR/XR abdomen 1V IMPRESSION: Moderate stool burden worrisome junction worrisome for possible constipation or impaction. Impression dictated by: Kelvin Antony M.D. 09/23/2025 6:18 PM Dictation Location: [place] [address] Electronically authenticated by: [id number] Y Date: 09/23/2025 18:18
--- NOTE | 2025-09-23 17:29 | ED_ITS ---
HPI HPI - General Adult General Chief complaint: Abdominal Pain Stated complaint: Constipation Time Seen by Provider: 09/23/25 17:12 Source: patient Mode of arrival: walk-in History of Present Illness HPI narrative: 74-year-old male presented to the emergency department for constipation. He has not had a bowel movement in 5 days. No complaints of abdominal pain or vomiting. He does not have a history of constipation and has not been on any new medications. Related Data Allergies Allergy/AdvReac Type Severity Reaction Status Date / Time No Known Drug Allergies Allergy Verified 09/23/25 17:13 Opioid HPI Opioid Management Most Recent Opioid Data: Last Pain Scale 3 Today, 17:13 Review of Systems ROS Narrative A ten point review of systems is negative except as noted above. PFSH PFSH Social History Little interest or pleasure in doing things: not at all Feeling down, depressed, or hopeless: not at all Exam Narrative Exam Narrative: Nurses note and vital signs reviewed General:The patient appears well and in no apparent distress.Patient is resting comfortably on cart. Skin:Warm, dry, no pallor noted.There is no rash noted. Head:Normocephalic, atraumatic Eye: Normal conjunctiva, no drainage Ears, Nose, Mouth, and Throat: oral mucosa is moist. Nares patent. Cardiovascular:Regular Rate and Rhythm Respiratory:Patient is in no distress, no accessory muscle use, lungs are clear to auscultation, no wheezing, rales or rhonchi Back:non-tender GI: Soft and nontender nondistended Musculoskeletal: The patient has no evidence of calf tenderness, no pitting edema, symmetrical pulses noted bilaterally Neurological: Awake and alert Psychiatric:Cooperative Constitutional Vital Signs, click to edit/add: Last Vital Signs Temp 98.2 F 09/23/25 17:13 Pulse 80 09/23/25 17:13 Resp 18 09/23/25 17:13 BP 200/100 H 09/23/25 17:13 Pulse Ox 97 09/23/25 17:13 O2 Del Method Room Air 09/23/25 17:13 Course Vital Signs Vital signs: Vital Signs Temperature 98.2 F 09/23/25 17:13 Pulse Rate 80 09/23/25 17:13 Respiratory Rate 18 09/23/25 17:13 Blood Pressure 200/100 H 09/23/25 17:13 Pulse Oximetry 97 09/23/25 17:13 Oxygen Delivery Method Room Air 09/23/25 17:13 Temperature 98.2 F 09/23/25 17:13 Pulse Rate 80 09/23/25 17:13 Respiratory Rate 18 09/23/25 17:13 Blood Pressure 200/100 H 09/23/25 17:13 Pulse Oximetry 97 09/23/25 17:13 Oxygen Delivery Method Room Air 09/23/25 17:13 Medical Decision Making MDM Narrative Medical decision making narrative: The patient presents with constipation. He was partially disimpacted in his starting to have some bowel movement. The patient is signed out to Dr. Jauregui at change of shift. Differential Diagnosis Differential Diagnosis: Constipation Imaging Data Abdominal x-ray: Radiologist's impression: ITS Impressions Abdomen X-Ray 09/23/25 17:29 IMPRESSION: Moderate stool burden worrisome junction worrisome for possible constipation or impaction. Impression dictated by: Kelvin Antony M.D. 09/23/2025 6:18 PM Dictation Location: [place] [address] Electronically authenticated by: [id number] Y Date: 09/23/2025 18:18 Discharge Plan Discharge Patient Disposition: Still a Patient
--- NOTE | 2025-09-23 19:49 | ED_ITS ---
HPI - Abdominal Pain General Chief Complaint: Abdominal Pain Stated Complaint: Constipation Time Seen by Provider: 09/23/25 17:12 Source: patient Mode of arrival: walk-in History of Present Illness HPI narrative: This 74-year-old male was signed out to me at shift change pending reevaluation. He presents for evaluation of constipation for the past 4 days. He was partially disimpacted prior to my arrival and trying to use the bathroom. He is having moderate amount of soft stool. He states he does not feel that much better. A rectal exam was performed revealing a large amount of stool/stool ball remaining in the rectal vault. Surgery lube was placed into the rectal vault and the patient was again manually disimpacted. After several attempts he stated he felt like he could use the bathroom. A bedside commode was brought to his room. The patient was able to have a large bowel movement and is feeling much better. He is comfortable being discharged home at this time. He was instructed to use Metamucil or MiraLAX on a daily basis until his bowel movements have returned to normal. Related Data Allergies Allergy/AdvReac Type Severity Reaction Status Date / Time No Known Drug Allergies Allergy Verified 09/23/25 17:13 PFSH PFSH Social History Little interest or pleasure in doing things: not at all Feeling down, depressed, or hopeless: not at all Exam Constitutional Vital Signs, click to edit/add: Last Vital Signs Temp 98.2 F 09/23/25 17:13 Pulse 80 09/23/25 17:13 Resp 18 09/23/25 17:13 BP 200/100 H 09/23/25 17:13 Pulse Ox 97 09/23/25 17:13 O2 Del Method Room Air 09/23/25 17:13 Course Vital Signs Vital signs: Vital Signs Temperature 98.2 F 09/23/25 17:13 Pulse Rate 80 09/23/25 17:13 Respiratory Rate 18 09/23/25 17:13 Blood Pressure 200/100 H 09/23/25 17:13 Pulse Oximetry 97 09/23/25 17:13 Oxygen Delivery Method Room Air 09/23/25 17:13 Temperature 98.2 F 09/23/25 17:13 Pulse Rate 80 09/23/25 17:13 Respiratory Rate 18 09/23/25 17:13 Blood Pressure 200/100 H 09/23/25 17:13 Pulse Oximetry 97 09/23/25 17:13 Oxygen Delivery Method Room Air 09/23/25 17:13 Discharge Plan Discharge Chief Complaint: Abdominal Pain Clinical Impression: Constipation Patient Disposition: Home, Self-Care Time of Disposition Decision: 20:13 Condition: Good Print Language: Latvian Instructions: Constipation (ED), High Fiber Diet (ED) Referrals: Miles Rajan DO [Primary Care Provider, Internal Medicine] - 1 week
[2025-09-23 20:25] VITALS: BP 228/140
[2025-09-23] MEDS: CLONIDINE HCL 0.1 MG TABLET PO (20:31)
== END 2025-09-23 20:47 | disposition home or self-care (01) ==
PROVIDERS: Emergency Provider Emergency Medicine; PCP Internal Medicine
DX: K59.00 Constipation, unspecified (principal)
CPT/HCPCS: 74018; 99283

== ENCOUNTER 2025-10-18 08:28 | Outpatient (OUT) | payer OTHER, SELFPAY ==
--- OUTSIDE RECORDS SUMMARY | 2025-10-18 08:33 | XMS_ITS | CCD ---
Author Organization [facility] Care Team Providers Care Corporate Tax Manager Name Role Phone Miles Rajan Unavailable JEREMIE BYRNE Attending Unavailable JEREMIE BYRNE Referring Unavailable Miles Rajan MD Primary Care Provider Miles Rajan DO Primary Care Provider [phone] Miles Rajan DO Attending Provider Miles Rajan DO Primary Care Provider [phone] Miles Rajan DO Attending Provider Ely Robert CMA Attending Provider Unavaila ble Medications Current Medications MedicationDrug Class(es)DatesSig (Normalized)Sig (Original)acetaminophen 325 mg oral tablet (3 sources)acetaminophen (Tylenol) 325 MG tablet every 4 (four) hours. Active amLODIPine 5 mg oral tablet (1 source)Dihydropyridine Calcium Channel BlockerStart: 61-53-3827kguj 1 tablet by mouth once dailyAmlodipine 5 mg tablet Active 5 MG PO Daily 30 October 04, 2025 12:00am Complies with drug therapydoxycycline hyclate 100 mg oral capsule (2 sources)Tetracycline-class DrugStart: 68-18-9035qmev 1 capsule by mouth twice dailyDoxycycline Hyclate 100 MG 1 capsule Orally twice daily for 7 days May, Activeibuprofen 200 mg oral tablet (3 sources)Nonsteroidal Anti-inflammatory Drugibuprofen (Advil) 200 MG tablet every 8 (eight) hours. ActiveNo Name (No Known Home Meds) (1 source)Start: 60-02-2027Fw Name (No Known Home Meds) Active August 23, 2025 12:00am Completed/Discontinued Medications MedicationDrug Class(es)DatesSig (Normalized)Sig (Original)benzonatate 200 mg oral capsule (3 sources)Non-narcotic AntitussiveStart: 08-25-2024 End: 74-96-8757jtsn 1 capsule by mouth three times dailyBenzonatate 200 mg capsule Discontinued 200 MG PO Three times daily 30 10 0 August 24, 2024 11:00pm August 23, 2025 9:37ametodolac 500 mg oral tablet (3 sources)Nonsteroidal Anti-inflammatory DrugStart: 03-05-2025 End: 82-16-9372nzdk 1 tablet by mouth twice dailyEtodolac 500 mg tablet Discontinued 500 MG PO Twice daily 15 March 04, 2025 11:00pm August 23, 2025 9:37am Problems Problem ClassificationProblemDateDocumented DateEpisodic/ChronicAcute bronchitis (1 source)Acute bronchitis due to other specified organismsEpisodicCoagulation and hemorrhagic disorders (4 sources)Easy bruising; Translations: [Spontaneous ecchymoses]04-20-2024 EpisodicDeficiency and other anemia (7 sources)Anemia; Translations: [Anemia, unspecified]33-16-3617FgkznderXlxfmrs on above:FA, B12 normal, Fe borderline - ologuard negative 10/2024 Deficiency and other anemia (1 source)Anemia, unspecified; Translations: [Anemia, unspecified]07-31-2024 EpisodicHyperplasia of prostate (7 sources)Benign prostatic hypertrophy without outflow obstruction; Translations: [Benign prostatic hyperplasia without lower urinary tract symptoms]80-22-3403XfjlxpaXkutlyxkdjbnxm (5 sources)Osteoarthritis of right hip joint; Translations: [Unilateral primary osteoarthritis, right hip]Onset: 200026-46-7461YemulqfAecpy circulatory disease (9 sources)Elevated blood-pressure reading without diagnosis of hypertension; Translations: [Elevated blood-pressure reading, without diagnosis of hypertension]47-34-6431CevzewcfYwprd circulatory disease (2 sources)Elevated blood-pressure reading, without diagnosis of hypertension; Translations: [Elevated blood pressure reading without diagnosis of hypertension]68-92-3328CaaoyrroFikha connective tissue disease (5 sources)History of total hip arthroplasty; Translations: [Presence of right artificial hip joint]Onset: 561092-84-6677SmcczfyIcbzw connective tissue disease (3 sources)Muscle pain; Translations: [Myalgia, unspecified site]08-23-2025 EpisodicOther nervous system disorders (1 source)Abnormal sensation; Translations: [Other disturbances of skin sensation]21-96-6705NvluekuxFgujr nutritional; endocrine; and metabolic disorders (3 sources)Obesity; Translations: [Obesity, unspecified]93-88-9568IukwkavZcvrs nutritional; endocrine; and metabolic disorders (6 sources)Overweight; Translations: [Overweight]41-05-8699YtcymozqVfmkt screening for suspected conditions (not mental disorders or infectious disease) (11 sources)Patient encounter status; Translations: [Encounter for screening for malignant neoplasm of prostate]24-30-1080HqduongpQjihhoy on above:PSA: 4.07 - 09/2024, 3.12 - 10/2024Spondylosis; intervertebral disc disorders; other back problems (7 sources)Lumbar spondylosis; Translations: [Spondylosis without myelopathy or radiculopathy, lumbar region]06-92-0137TdzgaxsKlpwlhjkxqk; intervertebral disc disorders; other back problems (4 sources)Low back pain; Translations: [Low back pain radiating to left lower extremity]56-75-2197Oeubcmrm Results Test NameValueInterpretationReference RangeFacilityXR Hip - right 3 Viewson 05-27-4171Sqzndpe Result: October 13, 2024 x-rays AP and lateral of the right hip demonstrate a right total hip replacement in good position alignment without signs of loosening fracture or failure. Impression: Stable appearance of right total hip replacement Donovan Byrne D.O.[facility] HospitalRad[facility] Study observation (narrative)[facility] Vital Signs Date TimeVital SignValuePerforming UdazwurkaExnzxwvm02-55-6020 11:35-0500Body ozuuqm219.88 cmBenjamin Ball DO Work Phone: [facility]11-03-2025 11:35-0500 Body mass index (BMI) [Ratio]28 kg/f0Brtixega Ball DO Work Phone: [facility]11-03-2025 11:35-0500 Body tfypjk28.66 kgBenjamin Ball DO Work Phone: [facility]11-03-2025 11:35-0500 Diastolic blood acyzozph934 mm[Hg]Miles Ball DO Work Phone: 1([phone])983-[address] [place], [place] 1730211-03-2025 11:35-0500 Heart rate87 /minBenjamin Ball DO Work Phone: 1(194)760-[address] [place], [place] 1730211-03-2025 11:35-0500 Respiratory rate12 /minBenjamin Ball DO Work Phone: 1(524)184-[address] [place], [place] 1730211-03-2025 11:35-0500 Systolic blood fogegure891 mm[Hg]Miles Ball DO Work Phone: [phone] [place], [place] 0403009-22-2025 10:39-0400 Body girnup533.88 cmBenjamin Ball DO Work Phone: [phone] [place], [place] 0403009-22-2025 10:39-0400 Body mass index (BMI) [Ratio]28.8 kg/e3Afylfubc Ball DO Work Phone: 1([phone])[address] [place], [place] 0403009-22-2025 10:39-0400 Body .33 kgBenjamin Ball DO Work Phone: [phone])[address] [place], [place] 0403009-22-2025 10:39-0400 Diastolic blood nqatznyt09 mm[Hg]Miles Ball DO Work Phone: 1(980)[address] [place], [place] 0403009-22-2025 10:39-0400 Diastolic blood wmbdgwyb65 mm[Hg]Miles Ball DO Work Phone: 1(432)815-[address] [place], [place] 1730209-22-2025 10:39-0400 Heart rate71 /minBenjamin Ball DO Work Phone: [phone])[address] [place], [place] 0403009-22-2025 10:39-0400 Respiratory rate12 /minBenjamin Ball DO Work Phone: 1(785)782-[address] [place], [place] 1730209-22-2025 10:39-0400 Systolic blood qumvjxdw165 mm[Hg]Miles Ball DO Work Phone: 1([phone])580-[address] [place], [place] 1730209-22-2025 10:39-0400 Systolic blood tevhsiij409 mm[Hg]Miles Rajan DO Work Phone: [facility]04-04-2025 10:40-0400 Body rfkliq984.88 cmK[facility]04-04-2025 10:40-0400Body mass index (BMI) [Ratio]30.7 kg/f5UfxyqwpkyK[facility]04-04-2025 10:40-0400Body yjdrfo999.56 kgK[facility]04-04-2025 10:40-0400Diastolic blood tpqaeojn71 mm[Hg][facility] 03-05-2025 10:40-0400Heart rate61 /[facility] 03-05-2025 10:40-0400Respiratory rate12 /[facility] 03-05-2025 10:40-0400Systolic blood nadngqul526 mm[Hg][facility]08-30-2024 09:03-0400Body knjipn209.88 cmK[facility]08-30-2024 09:03-0400Body mass index (BMI) [Ratio]29.9 kg/t2ZbdsaueixK[facility]08-30-2024 09:03-0400Body .35 [facility]08-30-2024 09:03-0400Diastolic blood yxynnxib27 mm[Hg] [facility]08-30-2024 09:03-0400Heart rate69 /[facility]08-30-2024 09:03-0400Respiratory rate12 /[facility]08-30-2024 09:03-0400Systolic blood evhscuph072 mm[Hg] [facility]05-20-2024 14:22-0400Body wsomit076.88 cm [facility]05-20-2024 14:22-0400Body mass index (BMI) [Ratio]29.7 kg/g0RmboflxeuK[facility]05-20-2024 14:22-0400Body luqonz08.33 kgK[facility]05-20-2024 14:22-0400Diastolic blood jfteohjp85 mm[Hg][facility]05-20-2024 14:-0400 Heart rate81 /[facility]05-20-2024 14:-0400 Respiratory rate12 /[facility]05-20-2024 14:-0400 Systolic blood zojhpftl856 mm[Hg][facility] Encounters Encounter DateEncounter TypeCare ProviderFacilityStart: 10-04-2025 End: 58-02-2029hhaatzgnyoMnrjnakd Ball DO Work Phone: -[facility] ClinicStart: 10-04-2025 End: 41-00-5697Hbdimhr encounter procedureBenestella Rajan DO-[facility] Work Phone: Start: 16-68-9476Mbb-patient / Non-visitCatherine Jakob REFERENCE AND INSTRUCTION LIBRARIAN-[facility] Work Phone: Start: 08-23-2025 End: 94-06-3054oszssqtewjPaymgfbh Victoria DO Work Phone: [facility] Work Phone: Start: 08-23-2025 End: 74-21-1442Fqhbmtu encounter procedureBenestella Rajan DO-[facility] Work Phone: Start: 03-05-2025 End: 09-00-6004milesbytptAqilsrbbpFirelands [facility] Work Phone: Start: 03-05-2025 End: 58-90-4029Vkkwefr encounter procedureNov[facility] Work Phone: Start: 31-52-4219Kgz-patient / Non-visitFirelands Physician Group-[facility] Work Phone: Start: 10-13-2024 End: 88-01-8151Jlgskc Melita Byrne DO Work Phone: [facility]Start: 10-13-2024 End: 75-37-6539Epbylp flowsheetJeremie Byrne DO Work Phone: [facility]ICSStart: 10-13-2024 End: 36-65-1256Kkfkyz outpatient visit 10 minutesJeremie Byrne DO Work Phone: [facility] ORTHOPAEDICSComment on above:Primary osteoarthritis of right hip; Status post total replacement of right hipStart: 10-13-2024 End: 38-34-3295crsqjgpmtjAVVCE A HUDDLESTONNot AvailableStart: 07-31-2024 End: 01-79-4713kagptfxahrYqioktgzwRiverview Health Institute Work Phone: Start: 07-31-2024 End: 27-37-1909Ychklul encounter procedureNovant [facility] Work Phone: Start: 04-20-2024 End: 21-28-1223ixfhncmvkhHwrnplsztRiverview Health Institute Work Phone: Start: 04-20-2024 End: 26-30-6499Raglcfk encounter procedureNovant Health [facility] Work Phone: Start: 05-07-2023 End: 30-29-5923lkhevzvzviRzaipxtk Satinder Other [facility] [employer] Other Start: 81-79-8720Yvlhvf outpatient visit 15 minutes Miles [facility] ClinicStart: 96-12-4611Jeyctotmn encounterBeandrea RajanBanner Baywood Medical Center [facility] Procedures DateProcedureProcedure DetailPerforming ClinicianStart: 12-72-8407Fkchj hip unilateral with pelvis 2-3 viewsJeremie Byrne DO Work Phone: Plan of Treatment DateCare ActivityDetailAuthorComprehensive metabolic 2000 panel - Serum or PlasmaKettering Health DaytonPatient EducationLow back pain in adults [facility] Work Phone: [facility] Immunizations Immunization DateImmunizationNotesCare GikwpqkhSlsmuvno39-97-0501VNEYN-80 mRNA- 1273 (Moderna)Miles Rajan DO Work Phone: [facility]04-23-2021COVID-19 mRNA-1273 (Moderna)Miles Rajan DO Work Phone: [facility]03-26-2021COVID-19 mRNA-1273 (Moderna)Miles Rajan DO Work Phone: [facility] Payers DatePayer CategoryPayerPolicy ID2023Medicare (Managed Care)[employer]ICARE [id number] [id number] Social History DateTypeDetailFacilitySex Assigned At [facility]Nom[facility] [employer] Other Start: 77-22-6212Glz Assigned At [facility], AvonTobacco smoking status NHISTobacco smoking consumption unknownNOVT HealthcareStart: 33-67-0156Kjj assigned at birthNot on fileNOMS HealthcareStart: 06-72-8248ErrVczx (finding)[facility] Start: 08-23-2025 End: 09-45-0243Gdzencd smoking status NHISNever smoked tobacco (finding) [facility] Clinical Notes 05-07-2023 to 08-23-2025 Note Date & LcjeRtvjTwjapgiu97-57-6188 Evaluation note* Diagnosis Onset Date Resolution Status Admit Date Anemia acuteSeptember 2024 10:20amElevated BP without diagnosis of hypertension acuteSeptember 2024 10:20amLumbar spondylosisacuteSeptember 2024 10:20amMyalgiaacuteSeptember 2024 10:20amOverweightacuteSeptember 2024 10:20amScreening PSA (prostate specific antigen)acuteSeptember 2024 10:20amMedicare annual wellness visit, subsequentnoneactiveSeptember 2024 10:20amAnemiaacuteNovember 2024 11:19amElevated BP without diagnosis of hypertensionacuteNovember 2024 11:19amLumbar spondylosisacuteNovember 2024 11:19amMyalgiaacuteNovember 2024 11:19amOverweightacuteNovember 2024 11:19am [facility] Work Phone: 1([phone] 552-150611-12-2024 History of Present illness Narrative* Jeremie Byrne, [...] if he desires a referral to another receiving specialist we would be happy to make referral, he states he would like to continue his care here if he needed. William Byrne D.O. documented in this encounterCrittenton Behavioral HealthHdsptcmvyj78-19-9092 Evaluation note* Encounter Date Diagnosis Assessment Notes Treatment Notes Treatment Clinical Notes May, Acute bronchitis due to other sp ecified organisms (ICD-10 - J20.8) Instructed to use Robitussin or Mucinex for cough, saline or Flonase NS for congestion, Tylenol forpain and fever. [employer] Other Evaluation noteNo InformationNort [employer] Other Evaluation noteNo assessment information available [facility] Work Phone: Evaluation note* Diagnosis Onset Date Resolution Status Anemia acuteBenign prostatic hyperplasia with lower urinary tract symptomsacuteElevated BP without diagnosis of hypertensionacuteScreening PSA (prostate specific antigen)acuteMedicare annual wellness visit, subsequentnoneactive [facility] Work Phone: Evaluation note* Diagnosis Primary osteoarthritis of right hip Status post total replacement of right hip documented in this encounter NOMS HealthcareEvaluation note* Diagnosis Onset Date Resolution Status Admit Date Elevated BP without diagnosis of hyperte nsion acuteApril 2024 10:09amLow back pain radiating to left lower extremityacute March 05, 2025 10:09amLumbar spondylosisacuteApril 2024 10:09am [facility] Work Phone: Evaluation note* Diagnosis Onset Date Resolution Status Admit Date Anemia acuteSeptember 2024 10:20amElevated BP without diagnosis of hypertension acuteSeptember 2024 10:20amLumbar spondylosisacuteSeptember 2024 10:20amObesityacuteSeptember 2024 10:20amScreening PSA (prostate specific antigen)acuteSeptember 2024 10:20am[facility]cl[facility] annual wellness visit, subsequentnoneactiveSeptember 2024 10:20am [facility] Work Phone: History general Narrative - Reported* Type Description Date Medical History BPH without obstruction/lower ur inary tract symptoms Medical HistoryElevated blood pressure (not hypertension)Surgical HistoryRIGHT SHOULDER ARTHROSCOPYSurgical HistoryRIGHT TOTAL HIP BIIHVSTIYBJC7660Ggebjxpd HistoryARTHROSCOPY, KNEE LEFTHospitalization HistorySEE [facility] [employer] Other Reason for referral (narrative)No reason for referral information availableHolzer Medical Center [facility] Work Phone: Chief Complaint and Reason for [...] visit, subseque nt August 23, 2025 10:20am Chief Complaint Admit Date Wellness August 23, 2025 10:20am Amb Documentation September 24, 2025 1 1:19am [facility] ER f/u October 04, 2025 1 1:19am Reason for Visit Admit Date Anemia August 23, 2025 10:20am Elevated BP without diagnosis of hyperte nsion August 23, 2025 10:20am Lumbar spondylosis August 23, 2025 10:20am Myalgia August 23, 2025 10:20am Overweight August 23, 2025 10:20am Screening PSA (prostate specific antigen ) August 23, 2025 10:20am Medicare annual wellness visit, subseque nt August 23, 2025 10:20am Anemia October 04, 2025 1 1:19am Elevated BP without diagnosis of hyperte nsion October 04, 2025 11:19am Lumbar spondylosis October 04, 2025 1 1:19am Myalgia October 04, 2025 1 1:19am Overweight October 04, 2025 1 1:19am Advance Directives Advance Directive Response Recorded Date/ Time Advance Directives No April 20 2:05pm Advance Directive Response Recorded Date/ Time Advance Directives No August 9:31am Advance Directive Response Recorded Date/ Time Advance Directives No August 8:31am Summary Purpose Family History No Family History [...] Start: August 23, 2025 End: August 23enestella Rajan DOAttending ProviderActiveStart: August 23, 2025 End: August 23, 2025 Team Status: Active Member Role Status Dates Miles Rajan DO Primary Care Provider Active Start: March 03, 2025 Ryder Bernard ProviderActiveStart: March 03, 2025 Team Status: Inactive [...] DateEnd Date Miles Rajan MD [address] [place] [address] [facility] Vthjujng91/7/23Team MemberRelationshipSpecialtyStart Date End Date Miles Rajan MD [address] [place] [address] [facility] Nhtdoesd80/7/23 Team Status: Active Member Role/Relationship Status Dates Miles Rajan DO Primary Care Provider Active Team Status: Inactive Member Role/Relationship Status Dates Miles Rajan DO Primary Care Provider Active Start: August 23, 2025 End: August 23enestella Rajan DOAttending ProviderActiveStart: August 23, 2025 End: August 23, 2025 Team Status: Active Member Role/Relationship Status Dates Miles Rajan DO Primary Care Provider Active Start: September 24, 2025 Ryder Brenard ProviderActiveStart: September 24, 2025 Team Status: Inactive Member Role/Relationship Status Dates Miles Rajan DO Primary Care Provider Active Start: October 04, 2025 End: October 04enjamin Ball , DOAttending ProviderActiveStart: October 04, 2025 End: October 04, 2025 Goals (unrecognized section and content) Goals may be documented in a n alternate section (unrecognized sect ion and content) No Status Records Found INFORMATION SOURCE (unrecogn ized section and content) DATE CREATED AUTHOR 10/19/2024 [facility] FOR RECORDS PERTAINING TO PATIENTS WHO ARE [...] BE BASED ON THE PRIMARY CLINICAL RECORDS. [facility] [employer] provides no warranty or guarantee of the accuracy or completeness of information in this document.
[2025-10-18 08:49] LABS: Estimated GFR (African America >60 (>=60 mL/min/1.73m^2); Estimated GFR (Non-African Ame 56 (>=60 mL/min/1.73m^2)
--- NOTE | 2025-10-18 10:15 | CT_ITS ---
The [address] [address] Patient Name: LYDIA REIS MRN: [id number] date: 1950 Sex: M Assigned Patient Location: LAB Current Patient Location: LAB Accession/Order Number: [id number] Exam Date: 10/18/2025 10:00 Report Date: 10/18/2025 11:12 At the request of: LIVIER FONTANA DO Procedure: CT abdomen pelvis w con CT ABDOMEN AND PELVIS WITH CONTRAST COMPARISON: None CLINICAL DATA: Abnormal weight loss, decreased appetite and constipation. Spiral images were obtained through the abdomen and pelvis following oral and 100 mL of Omnipaque 300. This CT exam was performed using one or more following dose reduction techniques: Automated exposure control, adjustment of the mA and/or kV according to patient size, or use of iterative reconstruction technique. Limited cuts through the lung bases show minimal dependent atelectasis. There are tiny hepatic hypodensities which might be cysts. There is also suspected focal fat near the fossa of the ligamentum teres. No calcified gallstones are identified. The spleen, pancreas and adrenal glands show no acute findings. There are symmetric renal nephrograms, without hydronephrosis. There are small renal cysts. There is mild atherosclerotic plaque involving the aorta, iliac and some of the visceral arteries. No enlarged lymph nodes or ascites are seen. The gastric fundus is decompressed and there is apparent wall thickening. There are no dilated small bowel loops. There is mild to moderate stool along the colon. Subtle dextroscoliotic curvature is noted. Degenerative changes are seen at the spine, greatest at the lower facets where there is associated spondylolisthesis at L4-5 and stenosis. Images through the pelvis show no appendiceal inflammation. There is no dilated small bowel. There is mild to moderate stool at the distal colon. There is no prominent diverticular disease within limits of artifact from a right hip prosthesis. The urinary bladder is not fully distended and the wall appears thickened. The prostate is not adequately visualized for evaluation. No ascites is noted. Degenerative changes are seen at the SI joints and moderate at the left hip. CT/CT abdomen pelvis w con IMPRESSION: SMALL HEPATIC AND RENAL CYSTS. NO BOWEL OR URINARY TRACT OBSTRUCTION. MILD TO MODERATE COLONIC STOOL. APPARENT URINARY BLADDER WALL THICKENING. THIS MAY RELATE TO INCOMPLETE DISTENTION HOWEVER CORRELATION IS RECOMMENDED TO EXCLUDE ANY POSSIBILITY OF CYSTITIS. NO ACUTE FINDINGS. Impression dictated by: Jessie Bhandari M.D. 10/18/2025 11:12 AM Dictation Location: [place] [address] Electronically authenticated by: [id number] Y Date: 10/18/2025 11:12
== END 2025-10-18 08:29 | disposition home or self-care (01) ==
LOC: LAB 08:28
PROVIDERS: Pathology Anatomic Pathology & Clinical Pathology; PCP Internal Medicine; Visit Provider Internal Medicine
DX: R63.0 Anorexia (principal); K59.00 Constipation, unspecified; R63.4 Abnormal weight loss; D64.9 Anemia, unspecified; K76.89 Other specified diseases of liver; N28.1 Cyst of kidney, acquired
CPT/HCPCS: 36415; 74177; 82565; Q9967

== ENCOUNTER 2025-10-21 12:08 | Outpatient (OUT) | payer OTHER, SELFPAY ==
--- OUTSIDE RECORDS SUMMARY | 2025-10-21 12:36 | XMS_ITS | CCD ---
Author Organization [facility] Care Team Providers Care Entertainment Usher Name Role Phone Miles Rajan Unavailable JEREMIE BYRNE Attending Unavailable JEREMIE BYRNE Referring Unavailable Miles Rajan MD Primary Care Provider Miles Rajan DO Primary Care Provider [phone] Miles Rajan DO Attending Provider Miles Rajan DO Primary Care Provider [phone] Miles Rajan DO Attending Provider [phone] Ely Robert CMA Attending Provider Unavaila ble Medications Current Medications MedicationDrug Class(es)DatesSig (Normalized)Sig (Original)acetaminophen 325 mg oral tablet (3 sources)acetaminophen (Tylenol) 325 MG tablet every 4 (four) hours. Active amLODIPine 5 mg oral tablet (1 source)Dihydropyridine Calcium Channel BlockerStart: 26-24-9420wrxk 1 tablet by mouth once dailyAmlodipine 5 mg tablet Active 5 MG PO Daily 30 October 04, 2025 12:00am Complies with drug therapydoxycycline hyclate 100 mg oral capsule (2 sources)Tetracycline-class DrugStart: 94-24-5971dlpo 1 capsule by mouth twice dailyDoxycycline Hyclate 100 MG 1 capsule Orally twice daily for 7 days May, Activeibuprofen 200 mg oral tablet (3 sources)Nonsteroidal Anti-inflammatory Drugibuprofen (Advil) 200 MG tablet every 8 (eight) hours. ActiveNo Name (No Known Home Meds) (1 source)Start: 67-71-2288Na Name (No Known Home Meds) Active August 23, 2025 12:00am Completed/Discontinued Medications MedicationDrug Class(es)DatesSig (Normalized)Sig (Original)benzonatate 200 mg oral capsule (3 sources)Non-narcotic AntitussiveStart: 08-25-2024 End: 73-61-8354mdnf 1 capsule by mouth three times dailyBenzonatate 200 mg capsule Discontinued 200 MG PO Three times daily 30 10 0 August 24, 2024 11:00pm August 23, 2025 9:37ametodolac 500 mg oral tablet (3 sources)Nonsteroidal Anti-inflammatory DrugStart: 03-05-2025 End: 21-38-5745gckf 1 tablet by mouth twice dailyEtodolac 500 mg tablet Discontinued 500 MG PO Twice daily 15 March 04, 2025 11:00pm August 23, 2025 9:37am Problems Problem ClassificationProblemDateDocumented DateEpisodic/ChronicAcute bronchitis (1 source)Acute bronchitis due to other specified organismsEpisodicCoagulation and hemorrhagic disorders (4 sources)Easy bruising; Translations: [Spontaneous ecchymoses]04-20-2024 EpisodicDeficiency and other anemia (7 sources)Anemia; Translations: [Anemia, unspecified]18-67-2492AnsthrzxHinotwu on above:FA, B12 normal, Fe borderline - ologuard negative 10/2024 Deficiency and other anemia (1 source)Anemia, unspecified; Translations: [Anemia, unspecified]07-31-2024 EpisodicHyperplasia of prostate (7 sources)Benign prostatic hypertrophy without outflow obstruction; Translations: [Benign prostatic hyperplasia without lower urinary tract symptoms]46-20-5803TfxesuqJuiwsdjneypldj (5 sources)Osteoarthritis of right hip joint; Translations: [Unilateral primary osteoarthritis, right hip]Onset: 948037-31-2037GuisgwvImwsi circulatory disease (9 sources)Elevated blood-pressure reading without diagnosis of hypertension; Translations: [Elevated blood-pressure reading, without diagnosis of hypertension]68-37-3043OjgqazcyDskxw circulatory disease (2 sources)Elevated blood-pressure reading, without diagnosis of hypertension; Translations: [Elevated blood pressure reading without diagnosis of hypertension]58-36-7701DhvbngnkAgqth connective tissue disease (5 sources)History of total hip arthroplasty; Translations: [Presence of right artificial hip joint]Onset: 439532-05-7127PrnindtVlnun connective tissue disease (3 sources)Muscle pain; Translations: [Myalgia, unspecified site]08-23-2025 EpisodicOther nervous system disorders (1 source)Abnormal sensation; Translations: [Other disturbances of skin sensation]93-76-4800MpxjhyajKfgvx nutritional; endocrine; and metabolic disorders (3 sources)Obesity; Translations: [Obesity, unspecified]88-37-5601QusoncpXbken nutritional; endocrine; and metabolic disorders (6 sources)Overweight; Translations: [Overweight]78-38-3053KfakfxukBjaxx screening for suspected conditions (not mental disorders or infectious disease) (11 sources)Patient encounter status; Translations: [Encounter for screening for malignant neoplasm of prostate]42-51-0978VtjlkyahRivrnvv on above:PSA: 4.07 - 09/2024, 3.12 - 10/2024Spondylosis; intervertebral disc disorders; other back problems (7 sources)Lumbar spondylosis; Translations: [Spondylosis without myelopathy or radiculopathy, lumbar region]01-34-5760CylyllpTtfpcnucnod; intervertebral disc disorders; other back problems (4 sources)Low back pain; Translations: [Low back pain radiating to left lower extremity]97-12-2441Ijiugtxt Results Test NameValueInterpretationReference RangeFacilityXR Hip - right 3 Viewson 63-28-7707Wiffpnw Result: October 13, 2024 x-rays AP and lateral of the right hip demonstrate a right total hip replacement in good position alignment without signs of loosening fracture or failure. Impression: Stable appearance of right total hip replacement Donovan Byrne D.O.[facility] CenterRadiology Study observation (narrative)[facility] Vital Signs Date TimeVital SignValuePerforming IemlrifrzPvridxqd10-72-6894 11:35-0500Body jfhupb122.88 cmBenjamin Ball DO Work Phone: [facility]11-03-2025 11:35-0500 Body mass index (BMI) [Ratio]28 kg/w6Pudwrigg Ball DO Work Phone: [facility]11-03-2025 11:35-0500 Body vfmywh82.66 kgBenjamin Ball DO Work Phone: [facility]11-03-2025 11:35-0500 Diastolic blood oohvvhhf298 mm[Hg]Miles Ball DO Work Phone: [phone] [place], [place] 9745811-03-2025 11:35-0500 Heart rate87 /minBenjamin Ball DO Work Phone: [phone] [place], [place] 9745811-03-2025 11:35-0500 Respiratory rate12 /minBenjamin Ball DO Work Phone: [phone] [place], [place] 9745811-03-2025 11:35-0500 Systolic blood pxuqsbdr802 mm[Hg]Miles Ball DO Work Phone: [phone] [place], [place] 5608909-22-2025 10:39-0400 Body ouhfqn527.88 cmBenjamin Ball DO Work Phone: [phone] [place], [place] 5608909-22-2025 10:39-0400 Body mass index (BMI) [Ratio]28.8 kg/y4Flejbosb Ball DO Work Phone: [phone] [place], [place] 5608909-22-2025 10:39-0400 Body .33 kgBenjamin Ball DO Work Phone: [phone] [place], [place] 5608909-22-2025 10:39-0400 Diastolic blood cipvbfti43 mm[Hg]Miles Ball DO Work Phone: [phone])[address] [place], [place] 5608909-22-2025 10:39-0400 Diastolic blood mm[Hg]Miles Ball DO Work Phone: [phone])608-[address] [place], [place] 9745809-22-2025 10:39-0400 Heart rate71 /minBenjamin Ball DO Work Phone: [phone])[address] [place], [place] 5608909-22-2025 10:39-0400 Respiratory rate12 /minBenjamin Ball DO Work Phone: [phone])706-[address] [place], [place] 9745809-22-2025 10:39-0400 Systolic blood fshorpyj925 mm[Hg]Miles Ball DO Work Phone: [phone] [place], [place] 9745809-22-2025 10:39-0400 Systolic blood uyrzwxbj004 mm[Hg]Miles Rajan DO Work Phone: [facility]04-04-2025 10:40-0400 Body .88 cmMem[facility]04-04-2025 10:40-0400Body mass index (BMI) [Ratio]30.7 kg/w7ZnqdmqsfkMemorial Health System [facility]04-04-2025 10:40-0400Body vegryk276.56 kgMemorial Health [facility]04-04-2025 10:40-0400Diastolic blood mm[Hg][facility] 03-05-2025 10:40-0400Heart rate61 /[facility] 03-05-2025 10:40-0400Respiratory rate12 /[facility] 03-05-2025 10:40-0400Systolic blood viuwjlub756 mm[Hg][facility]08-30-2024 09:03-0400Body .88 cmMem[facility]08-30-2024 09:03-0400Body mass index (BMI) [Ratio]29.9 kg/a7QsmhiegwxMemorial Health [facility]08-30-2024 09:03-0400Body .35 [facility]08-30-2024 09:03-0400Diastolic blood kgfaadxr32 mm[Hg] [facility]08-30-2024 09:03-0400Heart rate69 /[facility]08-30-2024 09:03-0400Respiratory rate12 /[facility]08-30-2024 09:03-0400Systolic blood pajerjms622 mm[Hg] [facility]05-20-2024 14:22-0400Body nphimd938.88 cm [facility]05-20-2024 14:22-0400Body mass index (BMI) [Ratio]29.7 kg/c5RyzelctojMemorial Health System [facility]05-20-2024 14:22-0400Body .33 kgMem[facility]05-20-2024 14:22-0400Diastolic blood letqkwoj77 mm[Hg][facility]05-20-2024 14:-0400 Heart rate81 /[facility]05-20-2024 14:-0400 Respiratory rate12 /[facility]05-20-2024 14:-0400 Systolic blood flnxgruo734 mm[Hg][facility] Encounters Encounter DateEncounter TypeCare ProviderFacilityStart: 10-04-2025 End: 80-31-1726vmprgofuqcNgctjyfv Ball DO Work Phone: [facility] ClinicStart: 10-04-2025 End: 47-99-1711Jahwhuh encounter procedureBenestella Rajan DO-[facility] Work Phone: Start: 75-55-5572Awv-patient / Non-visitCatherine Jakob [employer]-[facility] Work Phone: Start: 08-23-2025 End: 69-45-6992qcehabmbikOahspioh [place]ingdon DO Work Phone: [facility] Work Phone: Start: 08-23-2025 End: 47-75-5962Ybaqart encounter procedureBenestella Rajan DO-[facility] Work Phone: Start: 03-05-2025 End: 46-46-5604gbynhnstbdNwvagtarjJoint [facility] Work Phone: Start: 03-05-2025 End: 43-29-5550Oodopsd encounter procedureNov[facility] Work Phone: Start: 89-12-6591Frd-patient / Non-visitFirelands Physician Group-[facility] Work Phone: Start: 10-13-2024 End: 98-30-1940Dsebdr Melita Byrne DO Work Phone: [facility]Start: 10-13-2024 End: 93-97-7936Sfqtws flowsheetJeremie Byrne DO Work Phone: [facility]ICSStart: 10-13-2024 End: 54-86-0464Yuhdrs outpatient visit 10 minutesJeremie Byrne DO Work Phone: [facility]THOPAEDICSComment on above:Primary osteoarthritis of right hip; Status post total replacement of right hipStart: 10-13-2024 End: 85-61-8202aagocauhmrHJUTB A HUDDLESTONNot AvailableStart: 07-31-2024 End: 12-33-7886bxrjjehfkqDvzgpdtwkAshtabula [facility] Center Work Phone: Start: 07-31-2024 End: 43-06-9702Xghqkid encounter procedureNovant Health [facility] Work Phone: Start: 04-20-2024 End: 45-98-5693sptkzmkbwxTkxfjyozkAshtabula County Medical Center Work Phone: Start: 04-20-2024 End: 62-97-9553Uphmywc encounter procedureNovant Health [facility] Work Phone: Start: 05-07-2023 End: 53-33-0684hcwwydxcsoZsudrtrz Satinder Other [facility] Variable Other Start: 14-06-3045Mrtewm outpatient visit 15 minutes Miles Hansen [facility] [facility] ClinicStart: 60-36-2288Occwvobau encounterBeandrea RajanDignity Health St. [facility] Procedures DateProcedureProcedure DetailPerforming ClinicianStart: 57-01-8289Colff hip unilateral with pelvis 2-3 viewsJeremie Byrne DO Work Phone: Plan of Treatment DateCare ActivityDetailAuthorComprehensive metabolic 2000 panel - Serum or PlasmaMemorial Health System Selby General HospitalPatient EducationLow back pain in adults [facility] Work Phone: [facility] Immunizations Immunization DateImmunizationNotesCare OliwhkkcWvzbayyf96-23-8572XZXIH-16 mRNA- 1273 (Moderna)Miles Rajan DO Work Phone: [facility]04-23-2021COVID-19 mRNA-1273 (Moderna)Miles Rajan DO Work Phone: [facility]03-26-2021COVID-19 mRNA-1273 (Moderna)Miles Rajan DO Work Phone: [facility] Payers DatePayer CategoryPayerPolicy ID2023Medicare (Managed Care)[employer]ICARE [id number] [id number] Social History DateTypeDetailFacilitySex Assigned At [facility] Variable Other Start: 88-44-8965Yak Assigned At [facility] HospitalTobacco smoking status NHISTobacco smoking consumption unknownNODC HealthcareStart: 22-00-4518Zaj assigned at birthNot on fileNOMS HealthcareStart: 84-53-4213PdmIbej (finding)[facility] Start: 08-23-2025 End: 93-58-6911Lkehlox smoking status NHISNever smoked tobacco (finding) [facility] Clinical Notes 05-07-2023 to 08-23-2025 Note Date & PctsZxheSchtkief07-52-9847 Evaluation note* Diagnosis Onset Date Resolution Status Admit Date Anemia acuteSeptember 2024 10:20amElevated BP without diagnosis of hypertension acuteSeptember 2024 10:20amLumbar spondylosisacuteSeptember 2024 10:20amMyalgiaacuteSeptember 2024 10:20amOverweightacuteSeptember 2024 10:20amScreening PSA (prostate specific antigen)acuteSeptember 2024 10:20amMedicare annual wellness visit, subsequentnoneactiveSeptember 2024 10:20amAnemiaacuteNovember 2024 11:19amElevated BP without diagnosis of hypertensionacuteNovember 2024 11:19amLumbar spondylosisacuteNovember 2024 11:19amMyalgiaacuteNovember 2024 11:19amOverweightacuteNovember 2024 11:19am [facility] Work Phone: [phone] 354-805611-12-2024 History of Present illness Narrative* Jeremie Byrne, - 10/13/2024 10:45 AM EST Images from the original note were not included. HISTORY OF PRESENT ILLNESS: Khadar aJmes is an 73 y.o. @ male. Follow [...] if he desires a referral to another traffic control specialist we would be happy to make referral, he states he would like to continue his care here if he needed. William Byrne D.O. documented in this encounterUniversity of [facility] Health CareVvtnbuizpc78-42-3698 Evaluation note* Encounter Date Diagnosis Assessment Notes Treatment Notes Treatment Clinical Notes May, Acute bronchitis due to other sp ecified organisms (ICD-10 - J20.8) Instructed to use Robitussin or Mucinex for cough, saline or Flonase NS for congestion, Tylenol forpain and fever. [place] Variable Other Evaluation noteNo InformationNort Variable Other Evaluation noteNo assessment information available [facility] Work Phone: Evaluation note* Diagnosis Onset Date Resolution Status Anemia acuteBenign prostatic hyperplasia with lower urinary tract symptomsacuteElevated BP without diagnosis of hypertensionacuteScreening PSA (prostate specific antigen)acuteMedicare annual wellness visit, subsequentnoneactive [facility] Work Phone: Evaluation note* Diagnosis Primary osteoarthritis of right hip Status post total replacement of right hip documented in this encounter NOMS HealthcareEvaluation note* Diagnosis Onset Date Resolution Status Admit Date Elevated BP without diagnosis of hyperte nsion acuteApril 2024 10:09amLow back pain radiating to left lower extremityacute March 05, 2025 10:09amLumbar spondylosisacuteApril 2024 10:09am [facility] Work Phone: Evaluation note* Diagnosis Onset Date Resolution Status Admit Date Anemia acuteSeptember 2024 10:20amElevated BP without diagnosis of hypertension acuteSeptember 2024 10:20amLumbar spondylosisacuteSeptember 2024 10:20amObesityacuteSeptember 2024 10:20amScreening PSA (prostate specific antigen)acuteSeptember 2024 10:20amMedicregency hospital company annual wellness visit, subsequentnoneactiveSeptember 2024 10:20am [facility] Work Phone: History general Narrative - Reported* Type Description Date Medical History BPH without obstruction/lower ur inary tract symptoms Medical HistoryElevated blood pressure (not hypertension)Surgical HistoryRIGHT SHOULDER ARTHROSCOPYSurgical HistoryRIGHT TOTAL HIP QJLUADTODAEI4971Dkqkvivg HistoryARTHROSCOPY, KNEE LEFTHospitalization HistorySEE SURGICAL [facility] Variable Other Reason for referral (narrative)No reason for referral information availableRegency Hospital [facility] Work Phone: Chief Complaint and Reason for [...] DateEnd Date Miles Rajan MD [address] [place] [address] [facility] - [facility] Misjukfk99/7/23Team MemberRelationshipSpecialtyStart Date End Date Miles Rajan MD [address] [place] [address] [facility] Guzwvjbe94/7/23 Team Status: Active Member Role/Relationship Status Dates [...] Provider Active Start: September 24, 2025 Ryder Bernard ProviderActiveStart: September 24, 2025 Team Status: Inactive [...] section and content) DATE CREATED AUTHOR 10/19/2024 [facility] FOR RECORDS PERTAINING TO PATIENTS WHO [...] BE BASED ON THE PRIMARY CLINICAL RECORDS. [facility] [employer] provides no warranty or guarantee of the accuracy or completeness of information in this document.
[2025-10-21 13:16] LABS: Glucose Urine UA NEGATIVE (NEGATIVE)
== END 2025-10-21 12:09 | disposition home or self-care (01) ==
LOC: LAB 12:11
PROVIDERS: PCP Internal Medicine; Visit Provider Internal Medicine
DX: R93.41 Abnormal radiologic findings on diagnostic imaging of renal pelvis, ureter, or bladder (principal)
CPT/HCPCS: 81003; 87086